=== PATIENT | female | born 1950 | race African-American/Black ===

== ENCOUNTER 2016-08-26 11:35 | Emergency (ER) | payer MEDICARE, BC ==
[~2016-08-26] VITALS: Ht 162.6 cm; Wt 85.5 kg
[~2016-08-26 11:35] MED LIST: AMBIEN CR 12.12.5 MG PO; AMITIZA 8MCG8 MCG PO; AMLOPIDINE; AMLOPIDINE PO; AMOXICILLIN; AMOXICILLIN 50500 MG; AMOXICILLIN 50500 MG PO; ANUSOL-HC SUPPO25 MG RC; ASPIRIN 81M81 MG/TA2 PO; ASPIRIN E.C. 8181 MG PO; ATARAX 25MG25 MG/TAB PO; ATARAX PO; ATENOLOL100 MG PO; ATENOLOL50 MG PO; ATIVAN2 MG PO; AZASAN100 MG PO; AZATHIOPRINE50 MG PO; B-12 500 MCG PO; B-121000 MCG PO; BACLOFEN; BACLOFEN PO; BENICAR; BENICAR PO; BIOTIN1000 MCG; BIOTIN1000 MCG PO; BUPIVACAINE; BUSPIRONE5 MG PO; CATAPRES; CELLCEPT 5500 MG/TAB PO; CLONAZEPAM PO; CLONAZEPAM1 MG PO; CLONIDINE; COLACE 100100 MG/CAP PO; CYCLOSPORINE; CYMBALTA; CYMBALTA 20MG20 MG PO; CYMBALTA 60MG60 MG PO; CYMBALTA60 MG PO; DIAZEPAM PO; DILAUDID 2MG TAB2 MG PO; DILAUDID 4MG TAB4 MG PO; DILAUDID-51 MG/M1; DILAUDID4 MG PO; EFFEXOR 75M75 MG/TAB PO; FLEXERIL10 MG PO; FOLIC ACID 11 MG/TA1 PO; FUROSEMIDE; FUROSEMIDE PO; HYDROMORPHONE; HYDROMORPHONE4 MG; HYDROMORPHONE4 MG PO; IMURAN 50MG TAB50 MG PO; K-DUR 10 MEQ T10 MEQ PO; KRISTALOSE20 GM/PACK PO; LASIX 20MG TABL20 MG PO; LASIX 40MG TABL40 MG PO; LEVSIN0.125 M1 PO; LINZESS290CAP; LINZESS290CAP PO; LIORESAL 1010 MG/TAB PO; LIORESAL20 MG PO; LIPITOR20 MG PO; LISINOPRIL10 MG PO; LYRICA 75MG CAP75 MG PO; LYRICA100 MG PO; MIRALAX PA17 GM/Dose PO; MOVANTIK25 MG PO; NATURE'S BLE1000 MCG PO; NORCO 325 MG-51 TAB PO; NORVASC 5MG5 MG/TAB PO; NYSTATIN CREAM15 GM TP; OTREXUP25 MG/0.4 SQ; PERCOCET 325 MG1 TA2 PO; PHENERGAN 25 TA25 MG; PHENERGAN 25 TA25 MG PO; PLAVIX 75MG TAB75 MG PO; PRILOSEC 20MG20 MG PO; PRINIVIL10 MG PO; PRINIVIL2.5 MG PO; PROTONIX 40MG T40 MG PO; RESTORIL30 MG PO; ROPIVACAINE; SEE INSTRUCTIONS IT; SEE LIST; SINGULAIR 110 MG/TAB PO; SOMA; SOMA 350MG350 MG/TAB PO; STOOL SOFTENER100 M1 PO; STOOL SOFTENER100 M2 PO; SYNTHROID 0.0.025 MG PO; SYNTHROID0.05 MG PO; SYNTHROID0.05 MG/TA PO; See instructions IT; TENORMIN100 MG PO; TIROSINT50 MCG PO; TRAZODONE HYDRO50 MG PO; TRIAMCINOLONE AC0.13 TP; TRIAMCINOLONE0.1% TP; TRIAMTERENE AND1 TA1 PO; ULTRAM 50MG TAB50 MG PO; VALIUM 10MG10 MG/TAB PO; VITAMIN B-1000 MCG/T PO; VITAMIN D2000 I1 PO; VITAMIN D32000 I1 PO; ZANAFLEX 4MG TAB4 MG PO; [UNRECOGNIZED DRUG - OTHER]; [UNRECOGNIZED DRUG - OTHER]; [UNRECOGNIZED DRUG - SUPPLY]
[2016-08-26 11:45] VITALS: TEMP 98
[2016-08-26 12:32] LABS: BASO % 0.5 % (0.0-2.0); EOS # 0.1 (0.0-0.7); EOS % 1.1 % (0-4.0); GRAN # 2.1 (1.4-6.5); GRAN % 46.4 % (42.2-75.2); HEMATOCRIT 38.9 % (37.0-47.0); HEMOGLOBIN 12.2 g/dl (12.5-16.0); LYMPH # 1.7 (1.2-3.4); LYMPH % 38.1 % (20.0-51.0); MEAN CELL VOLUME 94 fl (80.0-100.0); MEAN CORPUSCULAR HEMOGLOBIN 29 pg (27.0-31.0); MEAN CORPUSCULAR HGB CONC 31 g/dl (33.0-37.0); MEAN PLATELET VOLUME 11.1 fl (7.4-10.4); MONO # 0.6 (0.1-0.6); MONO % 13.7 % (1.7-9.3); PLATELET COUNT 249 K/mm3 (130-400); RED BLOOD COUNT 4.15 M/mm3 (4.10-5.30); REDCELL DISTRIBUTION WIDTH-CV 14.7 % (11.5-14.5); WHITE BLOOD COUNT 4.4 K/mm3 (4.8-10.8)
[2016-08-26 12:38] LABS: PROTHROMBIN TIME 11.2 SECONDS (9.7-12.8)
[2016-08-26 12:46] LABS: ALANINE AMINOTRANSFERASE 40 U/L (9-52); ALBUMIN 4.3 gm/dL (3.5-5.0); ALKALINE PHOSPHATASE 85 U/L (50-136); ANION GAP 10 mmol/L (7-16); BILIRUBIN,TOTAL 1.2 mg/dL (0.0-1.0); BLOOD UREA NITROGEN 16 mg/dL (7-17); CALCIUM 10.2 mg/dL (8.4-10.2); CARBON DIOXIDE 32 mmol/L (22-30); CHLORIDE 99 mmol/L (98-107); CREATININE, serum 0.94 mg/dL (0.52-1.25); GLUCOSE 84 mg/dL (74-106); POTASSIUM 3.9 mmol/L (3.4-5.0); SODIUM 141 mmol/L (137-145); TOTAL PROTEIN 7.8 gm/dL (6.4-8.2)
[2016-08-26 12:48] LABS: C-REACTIVE PROTEIN < 0.5 mg/dL (0.0-0.9)
[2016-08-26 12:52] LABS: B-TYPE NATRIURETIC PEPTIDE 176 pg/mL (0-125)
[2016-08-26 13:07] LABS: ERYTHROCYTE SEDIMENTATION RATE 8 mm/hr (0-30)
[2016-08-26 13:14] LABS: TROPONIN-I < 0.012 ng/mL (0.000-0.034)
[2016-08-26 15:15] VITALS: BP 131/76; PULSE 70
== END 2016-08-26 15:15 | disposition home or self-care (01) ==
LOC: COL.ER 11:35
PROVIDERS: Emergency Medicine
DX: R51 Headache (principal); R60.0 Localized edema; R25.2 Cramp and spasm; F17.210 Nicotine dependence, cigarettes, uncomplicated; M32.9 Systemic lupus erythematosus, unspecified; Z86.718 Personal history of other venous thrombosis and embolism

== ENCOUNTER 2016-09-16 19:55 | Emergency (ER) | payer MEDICARE, BC ==
[~2016-09-16] VITALS: Ht 162.6 cm; Wt 81.8 kg
[2016-09-16 19:56] VITALS: TEMP 98.3
[2016-09-16 21:28] LABS: BASO % 0.5 % (0.0-2.0); EOS # 0.1 (0.0-0.7); EOS % 1.6 % (0-4.0); GRAN # 3.4 (1.4-6.5); LYMPH # 1.6 (1.2-3.4); LYMPH % 27.3 % (20.0-51.0); MEAN CELL VOLUME 93 fl (80.0-100.0); MEAN CORPUSCULAR HEMOGLOBIN 29 pg (27.0-31.0); MEAN CORPUSCULAR HGB CONC 32 g/dl (33.0-37.0); MEAN PLATELET VOLUME 10.6 fl (7.4-10.4); MONO # 0.7 (0.1-0.6); MONO % 11.4 % (1.7-9.3); PLATELET COUNT 255 K/mm3 (130-400); RED BLOOD COUNT 4.09 M/mm3 (4.10-5.30); REDCELL DISTRIBUTION WIDTH-CV 14.1 % (11.5-14.5); WHITE BLOOD COUNT 5.7 K/mm3 (4.8-10.8)
[2016-09-16 21:46] LABS: ALANINE AMINOTRANSFERASE 32 U/L (9-52); ALKALINE PHOSPHATASE 80 U/L (50-136); ANION GAP 7 mmol/L (7-16); BILIRUBIN,TOTAL 0.9 mg/dL (0.0-1.0); BLOOD UREA NITROGEN 14 mg/dL (7-17); C-REACTIVE PROTEIN < 0.5 mg/dL (0.0-0.9); CARBON DIOXIDE 36 mmol/L (22-30); CHLORIDE 99 mmol/L (98-107); CREATININE, serum 0.83 mg/dL (0.52-1.25); GLUCOSE 104 mg/dL (74-106); LIPASE 28 U/L (23-300); POTASSIUM 4.4 mmol/L (3.4-5.0); SODIUM 142 mmol/L (137-145); TOTAL PROTEIN 7.4 gm/dL (6.4-8.2)
[2016-09-16 22:05] LABS: ERYTHROCYTE SEDIMENTATION RATE 4 mm/hr (0-30)
[2016-09-16 22:38] VITALS: BP 152/80
[2016-09-16] MEDS ORDERED: ULTRAM 50MG TAB50 MG PO (22:39)
[2016-09-16] MEDS ORDERED: ZOFRAN8 MG PO (22:39)
[2016-09-16 22:45] LABS: PH 7 (5-8); SQUAMOUS EPITHELIAL 0-2 /hpf; URINE APPEARANCE Clear; URINE BACTERIA None Seen /hpf; URINE BILIRUBIN Negative (NEGATIVE); URINE BLOOD Negative (NEGATIVE); URINE COLOR Straw; URINE GLUCOSE Negative (NEGATIVE); URINE KETONE Negative (NEGATIVE); URINE RBC 0-2 /hpf; URINE UROBILINOGEN Negative (NEGATIVE); URINE WBC 0-2 /hpf
[2016-09-17 00:03] VITALS: PULSE 64
== END 2016-09-17 00:10 | disposition home or self-care (01) ==
LOC: COL.ER 19:55
PROVIDERS: Emergency Medicine
DX: R10.84 Generalized abdominal pain (principal); I10 Essential (primary) hypertension; F17.210 Nicotine dependence, cigarettes, uncomplicated
CPT/HCPCS: J1170; J2550; J7030; Q9967

== ENCOUNTER → 2016-10-02 | Outpatient (CLI) | payer MEDICARE, BC ==
[~2016-10-02] MED LIST changes: +CYMBALTA 30MG30 MG PO; +HAIRSKINNAILS PO; +MASON NATURAL2000 IU; +PERCOCET 325 MG1 TAB PO; +PROBIOTIC-MAJOR PO; +ZOFRAN8 MG PO
== END ==
LOC: MC.RAD 11:14
DX: Z12.31 Encounter for screening mammogram for malignant neoplasm of breast (principal); Z85.3 Personal history of malignant neoplasm of breast; Z90.12 Acquired absence of left breast and nipple
CPT/HCPCS: G0202

== ENCOUNTER → 2016-10-23 | Outpatient (CLI) | payer MEDICARE, BC | LOC: COL.RAD 10-21 11:30 | DX: M54.5 Low back pain (principal); M51.26 Other intervertebral disc displacement, lumbar region; M48.06 Spinal stenosis, lumbar region; M41.86 Other forms of scoliosis, lumbar region; Z97.8 Presence of other specified devices | CPT/HCPCS: Q9967 ==

== ENCOUNTER 2017-01-11 00:51 | Emergency (ER) | payer MEDICARE, BC ==
[~2017-01-11] VITALS: Ht 162.6 cm; Wt 84.1 kg
[~2017-01-11 00:51] MED LIST changes: -CYMBALTA 30MG30 MG PO; -HAIRSKINNAILS PO; -MASON NATURAL2000 IU; -PERCOCET 325 MG1 TAB PO; -PROBIOTIC-MAJOR PO
[2017-01-11 00:57] VITALS: TEMP 98.2
[2017-01-11] MEDS ORDERED: IMURAN 50MG TAB50 MG PO (01:05)
[2017-01-11] MEDS ORDERED: PERCOCET 325 MG1 TAB PO (01:10)
[2017-01-11] MEDS ORDERED: CYMBALTA 30MG30 MG PO (01:13)
[2017-01-11 01:37] LABS: BASO % 0.6 % (0.0-2.0); EOS # 0.1 (0.0-0.7); EOS % 2.5 % (0-4.0); GRAN # 2.9 (1.4-6.5); GRAN % 57.3 % (42.2-75.2); LYMPH # 1.5 (1.2-3.4); LYMPH % 30.2 % (20.0-51.0); MEAN CELL VOLUME 94 fl (80.0-100.0); MEAN CORPUSCULAR HGB CONC 32 g/dl (33.0-37.0); MEAN PLATELET VOLUME 10.9 fl (7.4-10.4); MONO # 0.5 (0.1-0.6); MONO % 9.2 % (1.7-9.3); PLATELET COUNT 253 K/mm3 (130-400); RED BLOOD COUNT 3.93 M/mm3 (4.10-5.30); REDCELL DISTRIBUTION WIDTH-CV 15.7 % (11.5-14.5); WHITE BLOOD COUNT 5.1 K/mm3 (4.8-10.8)
[2017-01-11 01:43] LABS: HEMATOCRIT 36.8 % (37.0-47.0); HEMOGLOBIN 11.8 g/dl (12.5-16.0); MEAN CORPUSCULAR HEMOGLOBIN 30 pg (27.0-31.0)
[2017-01-11 01:49] LABS: ADJUSTED CALCIUM 9.5 mg/dL (8.4-10.2); ALANINE AMINOTRANSFERASE 22 U/L (9-52); ALKALINE PHOSPHATASE 70 U/L (50-136); ANION GAP 8 mmol/L (7-16); BILIRUBIN,TOTAL 0.8 mg/dL (0.0-1.0); BLOOD UREA NITROGEN 14 mg/dL (7-17); CALCIUM 9.5 mg/dL (8.4-10.2); CARBON DIOXIDE 30 mmol/L (22-30); CHLORIDE 100 mmol/L (98-107); CREATININE, serum 0.87 mg/dL (0.52-1.25); GLUCOSE 102 mg/dL (74-106); LIPASE 41 U/L (23-300); POTASSIUM 3.9 mmol/L (3.4-5.0); SODIUM 138 mmol/L (137-145)
[2017-01-11 01:50] LABS: C-REACTIVE PROTEIN < 0.5 mg/dL (0.0-0.9)
[2017-01-11 01:58] LABS: B-TYPE NATRIURETIC PEPTIDE 90 pg/mL (0-125)
[2017-01-11 01:59] LABS: TROPONIN-I < 0.012 ng/mL (0.000-0.034)
[2017-01-11 02:00] LABS: ERYTHROCYTE SEDIMENTATION RATE 10 mm/hr (0-30)
[2017-01-11 03:18] LABS: PH 7 (5-8); SQUAMOUS EPITHELIAL 0-2 /hpf; URINE APPEARANCE Clear; URINE BACTERIA None Seen /hpf; URINE BILIRUBIN Negative (NEGATIVE); URINE BLOOD Negative (NEGATIVE); URINE COLOR Yellow; URINE GLUCOSE Negative (NEGATIVE); URINE KETONE Negative (NEGATIVE); URINE RBC 0-2 /hpf; URINE UROBILINOGEN Negative (NEGATIVE); URINE WBC 0-2 /hpf
[2017-01-11 04:04] VITALS: BP 128/84; PULSE 80
== END 2017-01-11 04:05 | disposition home or self-care (01) ==
LOC: COL.ER 00:51
PROVIDERS: Emergency Medicine
DX: R60.0 Localized edema (principal); G89.29 Other chronic pain; R51 Headache; R10.817 Generalized abdominal tenderness; M06.9 Rheumatoid arthritis, unspecified; M32.9 Systemic lupus erythematosus, unspecified; Z86.73 Personal history of transient ischemic attack (TIA), and cerebral infarction without residual deficits; K58.9 Irritable bowel syndrome, unspecified; R25.2 Cramp and spasm; M79.605 Pain in left leg; M79.604 Pain in right leg; Z79.891 Long term (current) use of opiate analgesic; Z79.82 Long term (current) use of aspirin
CPT/HCPCS: J1170

== ENCOUNTER → 2017-01-14 | Outpatient (CLI) | payer MEDICARE, BC ==
[~2017-01-14] MED LIST changes: +CYMBALTA 30MG30 MG PO; +HAIRSKINNAILS PO; +MASON NATURAL2000 IU; +PERCOCET 325 MG1 TAB PO; +PROBIOTIC-MAJOR PO
== END ==
LOC: COL.VAS 08:59
DX: M79.89 Other specified soft tissue disorders (principal)

== ENCOUNTER 2017-02-05 15:18 | Emergency (ER) | payer MEDICARE, BC ==
[~2017-02-05] VITALS: Ht 162.6 cm; Wt 80.0 kg
[~2017-02-05 15:18] MED LIST changes: -HAIRSKINNAILS PO; -MASON NATURAL2000 IU; -PROBIOTIC-MAJOR PO
[2017-02-05 15:22] VITALS: TEMP 98.1
[2017-02-05] MEDS ORDERED: NORCO 325 MG-51 TAB PO (16:46)
[2017-02-05] MEDS ORDERED: ULTRAM 50MG TAB50 MG PO (16:47)
[2017-02-05] MEDS ORDERED: LASIX 20MG TABL20 MG PO (17:10)
[2017-02-05 17:13] LABS: PH 6 (5-8); SQUAMOUS EPITHELIAL 0-2 /hpf; URINE APPEARANCE Hazy; URINE BACTERIA None Seen /hpf; URINE BILIRUBIN Negative (NEGATIVE); URINE BLOOD 3+ (NEGATIVE); URINE COLOR Amber; URINE GLUCOSE Negative (NEGATIVE); URINE KETONE Negative (NEGATIVE); URINE RBC >50 /hpf; URINE UROBILINOGEN Negative (NEGATIVE); URINE WBC None Seen /hpf
[2017-02-05] MEDS ORDERED: IMURAN 50MG TAB50 MG PO (17:14)
[2017-02-05 19:30] VITALS: BP 140/69; PULSE 60
== END 2017-02-05 19:56 | disposition home or self-care (01) ==
LOC: COL.ER 15:18 → MEDICAL 19:21 → COL.ER 19:21
PROVIDERS: Emergency Medicine
DX: M54.5 Low back pain (principal); M25.551 Pain in right hip; G89.29 Other chronic pain; Z86.73 Personal history of transient ischemic attack (TIA), and cerebral infarction without residual deficits; I10 Essential (primary) hypertension; M06.9 Rheumatoid arthritis, unspecified; M32.9 Systemic lupus erythematosus, unspecified; Z86.718 Personal history of other venous thrombosis and embolism; Z96.641 Presence of right artificial hip joint; W07.XXXA Fall from chair, initial encounter; Z79.02 Long term (current) use of antithrombotics/antiplatelets
CPT/HCPCS: J1170; J1885

== ENCOUNTER 2017-02-11 15:58 | Day surgery (SDC) | payer MEDICARE, BC ==
[~2017-02-11] VITALS: Ht 162.6 cm; Wt 79.9 kg
[2017-02-11 16:42] VITALS: BP 140/65; PULSE 70; TEMP 97.6
[2017-02-11] MEDS ORDERED: MASON NATURAL2000 IU (17:17)
[2017-02-11] MEDS ORDERED: CYMBALTA 20MG20 MG PO (17:18)
[2017-02-11] MEDS ORDERED: CYMBALTA 60MG60 MG PO (17:20)
[2017-02-11] MEDS ORDERED: MIRALAX PA17 GM/Dose PO (17:28)
[2017-02-11] MEDS ORDERED: PROBIOTIC-MAJOR PO (17:30)
[2017-02-11] MEDS ORDERED: DILAUDID 4MG TAB4 MG PO (17:31)
[2017-02-11 18:45] VITALS: BP 115/73; PULSE 73; TEMP 97.1
[2017-02-11 20:00] VITALS: BP 115/73; PULSE 72
[2017-02-11 20:30] VITALS: BP 139/68; PULSE 69
[2017-02-11 21:30] VITALS: BP 130/95; PULSE 72
[2017-02-11 22:30] VITALS: BP 12/73; PULSE 84
== END 2017-02-11 20:21 | disposition home or self-care (01) ==
LOC: SDCO 15:58 → JCC 16:00 → SDCO 17:30
DX: N20.0 Calculus of kidney (principal); I10 Essential (primary) hypertension; K58.9 Irritable bowel syndrome, unspecified; D68.62 Lupus anticoagulant syndrome; F17.210 Nicotine dependence, cigarettes, uncomplicated; I25.10 Atherosclerotic heart disease of native coronary artery without angina pectoris; I25.2 Old myocardial infarction; G47.33 Obstructive sleep apnea (adult) (pediatric); K21.9 Gastro-esophageal reflux disease without esophagitis; M19.90 Unspecified osteoarthritis, unspecified site; D64.9 Anemia, unspecified; E03.9 Hypothyroidism, unspecified; M06.9 Rheumatoid arthritis, unspecified; F41.9 Anxiety disorder, unspecified; Z79.01 Long term (current) use of anticoagulants; Z80.9 Family history of malignant neoplasm, unspecified; Z90.710 Acquired absence of both cervix and uterus; Z90.12 Acquired absence of left breast and nipple; Z86.73 Personal history of transient ischemic attack (TIA), and cerebral infarction without residual deficits; Z85.3 Personal history of malignant neoplasm of breast; Z96.652 Presence of left artificial knee joint; Z87.442 Personal history of urinary calculi; Z96.649 Presence of unspecified artificial hip joint
CPT/HCPCS: OP; C1769; J0360; J0690; J1100; J1885; J2405; J2704; J2765; J3010; J7120; Q9967

== ENCOUNTER 2017-02-13 11:24 | Observation (INO) | payer MEDICARE, BC ==
[2017-02-13] VITALS (10 sets, daily range): BP systolic 118–163; BP diastolic 61–99; PULSE 72–86; TEMP 97.8–98
[~2017-02-13] VITALS: Ht 162.6 cm; Wt 76.9 kg
[~2017-02-13 11:24] MED LIST changes: +MASON NATURAL2000 IU; +PROBIOTIC-MAJOR PO
[2017-02-13 12:22] LABS: PH 7 (5-8); SQUAMOUS EPITHELIAL 0-2 /hpf; URINE APPEARANCE Clear; URINE BACTERIA None Seen /hpf; URINE BILIRUBIN Negative (NEGATIVE); URINE BLOOD 2+ (NEGATIVE); URINE COLOR Straw; URINE GLUCOSE Negative (NEGATIVE); URINE KETONE Negative (NEGATIVE); URINE RBC 20-50 /hpf; URINE UROBILINOGEN Negative (NEGATIVE); URINE WBC 0-2 /hpf
[2017-02-13 12:49] LABS: ADJUSTED CALCIUM 9.7 mg/dL (8.4-10.2); ALANINE AMINOTRANSFERASE 24 U/L (9-52); ALBUMIN 4.3 gm/dL (3.5-5.0); ALKALINE PHOSPHATASE 81 U/L (50-136); ANION GAP 11 mmol/L (7-16); BILIRUBIN,TOTAL 0.8 mg/dL (0.0-1.0); BLOOD UREA NITROGEN 17 mg/dL (7-17); CALCIUM 9.9 mg/dL (8.4-10.2); CARBON DIOXIDE 28 mmol/L (22-30); CHLORIDE 103 mmol/L (98-107); CREATININE, serum 0.96 mg/dL (0.52-1.25); GLUCOSE 99 mg/dL (74-106); POTASSIUM 3.3 mmol/L (3.4-5.0); SODIUM 141 mmol/L (137-145); TOTAL PROTEIN 7.8 gm/dL (6.4-8.2)
[2017-02-13 13:16] LABS: BASO % 0.2 % (0.0-2.0); EOS # 0.1 (0.0-0.7); EOS % 0.7 % (0-4.0); GRAN # 7.5 (1.4-6.5); GRAN % 72.7 % (42.2-75.2); HEMOGLOBIN 12.4 g/dl (12.5-16.0); LYMPH # 1.3 (1.2-3.4); LYMPH % 12.5 % (20.0-51.0); MEAN CELL VOLUME 94 fl (80.0-100.0); MEAN CORPUSCULAR HEMOGLOBIN 31 pg (27.0-31.0); MEAN CORPUSCULAR HGB CONC 33 g/dl (33.0-37.0); MEAN PLATELET VOLUME 11.1 fl (7.4-10.4); MONO # 1.3 (0.1-0.6); PLATELET COUNT 295 K/mm3 (130-400); RED BLOOD COUNT 4.06 M/mm3 (4.10-5.30); REDCELL DISTRIBUTION WIDTH-CV 15.9 % (11.5-14.5); WHITE BLOOD COUNT 10.3 K/mm3 (4.8-10.8)
[2017-02-13 13:27] LABS: C-REACTIVE PROTEIN < 0.5 mg/dL (0.0-0.9)
[2017-02-14] VITALS: BP 132/58; PULSE 75
[2017-02-14 04:56] VITALS: BP 133/62; PULSE 79; TEMP 98.1
[2017-02-14 09:20] VITALS: BP 127/56; PULSE 66; TEMP 98.4
[2017-02-14 13:30] VITALS: BP 116/45; PULSE 67; TEMP 98.6
[2017-02-14 18:25] VITALS: BP 130/56; PULSE 65; TEMP 98.6
[2017-02-14 20:00] VITALS: BP 143/72; PULSE 74; TEMP 98
== END 2017-02-14 20:55 | disposition home or self-care (01) ==
LOC: COL.ER 11:24 → SURG 14:56
PROVIDERS: Family Medicine
DX: N13.6 Pyonephrosis (principal); Z87.442 Personal history of urinary calculi; I25.10 Atherosclerotic heart disease of native coronary artery without angina pectoris; I25.2 Old myocardial infarction; F17.210 Nicotine dependence, cigarettes, uncomplicated; K21.9 Gastro-esophageal reflux disease without esophagitis; G89.29 Other chronic pain; M54.9 Dorsalgia, unspecified; F41.8 Other specified anxiety disorders; Z86.718 Personal history of other venous thrombosis and embolism; E03.9 Hypothyroidism, unspecified; D64.9 Anemia, unspecified; Z85.3 Personal history of malignant neoplasm of breast; I69.351 Hemiplegia and hemiparesis following cerebral infarction affecting right dominant side; I10 Essential (primary) hypertension; Z97.8 Presence of other specified devices; Z79.02 Long term (current) use of antithrombotics/antiplatelets; M19.90 Unspecified osteoarthritis, unspecified site
CPT/HCPCS: A4315; A9284; C1769; C2617; G0378; J0330; J0690; J0696; J1170; J1200; J2405; J2550; J2704; J3010; J7030; J7120; Q9967

== ENCOUNTER 2017-02-22 09:49 | Day surgery (SDC) | payer MEDICARE, BC ==
[2017-02-22] VITALS (11 sets, daily range): BP systolic 107–138; BP diastolic 47–77; PULSE 69–85; TEMP 97.5–98.5
[~2017-02-22] VITALS: Ht 162.6 cm; Wt 78.4 kg
[2017-02-22] MEDS ORDERED: HAIRSKINNAILS PO (11:03)
[2017-02-22] MEDS ORDERED: PERCOCET 325 MG1 TAB PO (11:06)
[2017-02-23 02:09] VITALS: BP 118/52; PULSE 74; TEMP 98.5
[2017-02-23 05:43] VITALS: BP 130/56; PULSE 64; TEMP 98.5
[2017-02-23 09:24] VITALS: BP 112/49; PULSE 69; TEMP 98.1
== END 2017-02-23 13:20 | disposition home or self-care (01) ==
LOC: SDCO 09:49 → SURG 13:20 → SDCO 02-23 13:20
DX: N20.1 Calculus of ureter (principal); K58.9 Irritable bowel syndrome, unspecified; G62.9 Polyneuropathy, unspecified; I10 Essential (primary) hypertension; M06.9 Rheumatoid arthritis, unspecified; G47.30 Sleep apnea, unspecified; Z97.8 Presence of other specified devices; Z86.73 Personal history of transient ischemic attack (TIA), and cerebral infarction without residual deficits; Z96.653 Presence of artificial knee joint, bilateral; Z96.649 Presence of unspecified artificial hip joint
CPT/HCPCS: OP; A9284; C1769; J0690; J1100; J1885; J2405; J2704; J2765; J3010; J7030; J7500; Q9967

== ENCOUNTER 2017-03-24 15:59 | Emergency (ER) | payer MEDICARE, BC ==
[~2017-03-24] VITALS: Ht 162.6 cm; Wt 68.6 kg
[~2017-03-24 15:59] MED LIST changes: +HAIRSKINNAILS PO
[2017-03-24 16:04] VITALS: TEMP 97.9
[2017-03-24 17:03] LABS: BASO % 0.3 % (0.0-2.0); EOS # 0.3 (0.0-0.7); EOS % 5.1 % (0-4.0); GRAN # 3.5 (1.4-6.5); GRAN % 60.1 % (42.2-75.2); LYMPH # 1.4 (1.2-3.4); LYMPH % 23.9 % (20.0-51.0); MEAN CELL VOLUME 94 fl (80.0-100.0); MEAN CORPUSCULAR HGB CONC 33 g/dl (33.0-37.0); MEAN PLATELET VOLUME 10.8 fl (7.4-10.4); MONO # 0.6 (0.1-0.6); MONO % 10.3 % (1.7-9.3); PLATELET COUNT 310 K/mm3 (130-400); RED BLOOD COUNT 3.32 M/mm3 (4.10-5.30); WHITE BLOOD COUNT 5.9 K/mm3 (4.8-10.8)
[2017-03-24 17:04] LABS: HEMATOCRIT 31.2 % (37.0-47.0); HEMOGLOBIN 10.2 g/dl (12.5-16.0); MEAN CORPUSCULAR HEMOGLOBIN 31 pg (27.0-31.0)
[2017-03-24 17:08] LABS: PROTHROMBIN TIME 11.5 SECONDS (9.7-12.8)
[2017-03-24 17:10] LABS: PARTIAL THROMBOPLASTIN TIME 32.1 SECONDS (26.0-37.0)
[2017-03-24 17:23] LABS: ADJUSTED CALCIUM 10.1 mg/dL (8.4-10.2); ALBUMIN 3.5 gm/dL (3.5-5.0); BILIRUBIN,TOTAL 0.5 mg/dL (0.0-1.0); CALCIUM 9.7 mg/dL (8.4-10.2); CREATININE, serum 0.86 mg/dL (0.52-1.25); POTASSIUM 3.4 mmol/L (3.4-5.0); TOTAL PROTEIN 6.9 gm/dL (6.4-8.2)
[2017-03-24 19:40] VITALS: BP 100/66; PULSE 79
== END 2017-03-24 19:40 | disposition home or self-care (01) ==
LOC: COL.ER 15:59
PROVIDERS: Emergency Medicine
DX: M25.512 Pain in left shoulder (principal); M54.9 Dorsalgia, unspecified; G89.29 Other chronic pain; R20.0 Anesthesia of skin; F17.210 Nicotine dependence, cigarettes, uncomplicated; Z79.82 Long term (current) use of aspirin; W18.30XA Fall on same level, unspecified, initial encounter; Y92.002 Bathroom of unspecified non-institutional (private) residence as the place of occurrence of the external cause

== ENCOUNTER 2017-06-03 15:46 | Emergency (ER) | payer MEDICARE, BC ==
[~2017-06-03] VITALS: Ht 162.6 cm; Wt 77.3 kg
[2017-06-03 15:52] VITALS: BP 118/59; TEMP 98
[2017-06-03 19:50] VITALS: PULSE 76
== END 2017-06-03 19:51 | disposition home or self-care (01) ==
LOC: COL.ER 15:46
DX: S70.01XA Contusion of right hip, initial encounter (principal); R60.0 Localized edema; F17.210 Nicotine dependence, cigarettes, uncomplicated; M79.1 Myalgia; Z79.82 Long term (current) use of aspirin; Z91.81 History of falling; W18.30XA Fall on same level, unspecified, initial encounter; Y92.009 Unspecified place in unspecified non-institutional (private) residence as the place of occurrence of the external cause
CPT/HCPCS: J1885

== ENCOUNTER → 2017-10-20 | Outpatient (CLI) | payer MEDICARE, BC | LOC: MC.RAD 10:08 | DX: Z12.31 Encounter for screening mammogram for malignant neoplasm of breast (principal) ==

== ENCOUNTER 2017-11-12 15:00 | Outpatient (RCR) | payer MEDICARE, BC ==
[~2017-11-12] VITALS: Ht 162.6 cm; Wt 77.2 kg
[2017-11-12 15:32] VITALS: BP 107/47; PULSE 87; TEMP 98.6
== END 2017-11-12 16:29 | disposition home or self-care (01) ==
LOC: EUO 15:00
DX: M81.0 Age-related osteoporosis without current pathological fracture (principal); Z88.5 Allergy status to narcotic agent; Z88.2 Allergy status to sulfonamides; Z88.8 Allergy status to other drugs, medicaments and biological substances
CPT/HCPCS: J3489

== ENCOUNTER 2017-12-22 10:26 | Emergency (ER) | payer MEDICARE, BC ==
[~2017-12-22] VITALS: Ht 162.6 cm; Wt 74.1 kg
[2017-12-22 10:28] VITALS: TEMP 98
[2017-12-22 11:18] LABS: EOS # 0.2 (0.0-0.7); EOS % 4.4 % (0-4.0); GRAN # 2.1 (1.4-6.5); GRAN % 52.6 % (42.2-75.2); HEMATOCRIT 32.7 % (37.0-47.0); HEMOGLOBIN 10.3 g/dl (12.5-16.0); LYMPH # 1.1 (1.2-3.4); LYMPH % 28.8 % (20.0-51.0); MEAN CELL VOLUME 95 fl (80.0-100.0); MEAN CORPUSCULAR HEMOGLOBIN 30 pg (27.0-31.0); MEAN CORPUSCULAR HGB CONC 32 g/dl (33.0-37.0); MEAN PLATELET VOLUME 10.5 fl (7.4-10.4); MONO # 0.5 (0.1-0.6); MONO % 12.9 % (1.7-9.3); PLATELET COUNT 335 K/mm3 (130-400); RED BLOOD COUNT 3.44 M/mm3 (4.10-5.30); REDCELL DISTRIBUTION WIDTH-CV 16.5 % (11.5-14.5)
[2017-12-22 11:26] LABS: ALBUMIN 3.6 gm/dL (3.5-5.0); BILIRUBIN,TOTAL 0.8 mg/dL (0.0-1.0); CALCIUM 9.2 mg/dL (8.4-10.2); CREATININE, serum 0.74 mg/dL (0.52-1.25); PHOSPHOROUS 3.8 mg/dL (2.5-4.5); POTASSIUM 3.8 mmol/L (3.4-5.0)
[2017-12-22 13:10] LABS: COLLECTION METHOD CLEAN CATCH
[2017-12-22 13:16] LABS: MUCOUS Present /lpf; PH 7 (5-8); SQUAMOUS EPITHELIAL 0-2 /hpf; URINE APPEARANCE Clear; URINE BACTERIA None Seen /hpf; URINE BILIRUBIN Negative (NEGATIVE); URINE BLOOD Negative (NEGATIVE); URINE COLOR Yellow; URINE GLUCOSE Negative (NEGATIVE); URINE KETONE Negative (NEGATIVE); URINE LEUKOCYTE ESTERASE Negative (NEGATIVE); URINE NITRATE Negative (NEGATIVE); URINE PROTEIN(semi-quant) Negative (NEGATIVE); URINE RBC 0-2 /hpf; URINE UROBILINOGEN Negative (NEGATIVE)
[2017-12-22 14:25] VITALS: BP 152/73; PULSE 68
== END 2017-12-22 13:50 | disposition home or self-care (01) ==
LOC: COL.ER 10:26
PROVIDERS: Emergency Medicine
DX: S06.0X0A Concussion without loss of consciousness, initial encounter (principal); S00.83XA Contusion of other part of head, initial encounter; Z79.02 Long term (current) use of antithrombotics/antiplatelets; Z79.82 Long term (current) use of aspirin; W19.XXXA Unspecified fall, initial encounter; W22.8XXA Striking against or struck by other objects, initial encounter; Y92.009 Unspecified place in unspecified non-institutional (private) residence as the place of occurrence of the external cause
CPT/HCPCS: J1170

== ENCOUNTER → 2018-07-14 | Outpatient (CLI) | payer MEDICARE, BC | LOC: COL.RAD 14:00 | DX: M79.672 Pain in left foot (principal) | CPT/HCPCS: J3301; Q9967 ==

== ENCOUNTER 2018-08-03 10:44 | Emergency (ER) | payer MEDICARE, BC ==
[~2018-08-03] VITALS: Ht 162.6 cm; Wt 89.1 kg
[2018-08-03 10:49] VITALS: BP 117/59; TEMP 98.3
[2018-08-03 11:25] LABS: BASO % 0.2 % (0.0-2.0); EOS % 0.6 % (0-4.0); GRAN # 3.3 (1.4-6.5); GRAN % 68.4 % (42.2-75.2); HEMATOCRIT 41.6 % (37.0-47.0); HEMOGLOBIN 13.7 g/dl (12.5-16.0); LYMPH # 0.9 (1.2-3.4); LYMPH % 18.3 % (20.0-51.0); MEAN CELL VOLUME 92 fl (80.0-100.0); MEAN CORPUSCULAR HEMOGLOBIN 30 pg (27.0-31.0); MEAN CORPUSCULAR HGB CONC 33 g/dl (33.0-37.0); MEAN PLATELET VOLUME 11.2 fl (7.4-10.4); MONO # 0.6 (0.1-0.6); MONO % 12.1 % (1.7-9.3); PLATELET COUNT 258 K/mm3 (130-400); RED BLOOD COUNT 4.53 M/mm3 (4.10-5.30); REDCELL DISTRIBUTION WIDTH-CV 15.4 % (11.5-14.5)
[2018-08-03 11:37] LABS: ALBUMIN 4.4 gm/dL (3.5-5.0); BILIRUBIN,TOTAL 0.8 mg/dL (0.0-1.0); CALCIUM 10.2 mg/dL (8.4-10.2); CREATININE, serum 1.24 mg/dL (0.52-1.25); POTASSIUM 4.2 mmol/L (3.4-5.0); TOTAL PROTEIN 8.3 gm/dL (6.4-8.2)
[2018-08-03] MEDS ORDERED: PROAIR HFA0.09 MG/AC IH (11:55)
[2018-08-03] MEDS ORDERED: AMITIZA24 MCG PO (11:58)
[2018-08-03] MEDS ORDERED: PAMELOR 25MG25 MG PO (12:05)
[2018-08-03] MEDS ORDERED: ZANTAC 150MG T150 MG PO (12:06)
[2018-08-03] MEDS ORDERED: RECLAST5 MG/100 M IV (12:06)
[2018-08-03] MEDS ORDERED: XELJANZ XR11 MG PO (12:07)
[2018-08-03] MEDS ORDERED: XIIDRA1 EACH OP (12:07)
[2018-08-03] MEDS ORDERED: GINGER ROOT EX250 MG PO (12:09)
[2018-08-03] MEDS ORDERED: DILAUDID (12:12)
[2018-08-03] MEDS ORDERED: PROMETHAZINE12.5 M5 PO (13:06)
[2018-08-03 13:21] VITALS: PULSE 93
[2018-08-03] MEDS ORDERED: DOXYCYCLINE HY100 MG PO (13:26)
== END 2018-08-03 13:53 | disposition home or self-care (01) ==
LOC: COL.ER 10:44
PROVIDERS: Nurse Practitioner
DX: J20.9 Acute bronchitis, unspecified (principal); J45.909 Unspecified asthma, uncomplicated; K58.9 Irritable bowel syndrome, unspecified; F17.210 Nicotine dependence, cigarettes, uncomplicated; Z79.82 Long term (current) use of aspirin; Z79.02 Long term (current) use of antithrombotics/antiplatelets
CPT/HCPCS: J7030

== ENCOUNTER 2018-09-30 10:27 | Emergency (ER) | payer MEDICARE, BC ==
[~2018-09-30] VITALS: Ht 162.6 cm; Wt 93.2 kg
[~2018-09-30 10:27] MED LIST changes: +AMITIZA24 MCG PO; +DILAUDID; +DOXYCYCLINE HY100 MG PO; +GINGER ROOT EX250 MG PO; +PAMELOR 25MG25 MG PO; +PROAIR HFA0.09 MG/AC IH; +PROMETHAZINE12.5 M5 PO; +RECLAST5 MG/100 M IV; +UROCIT-K 5540 MG/TAB PO; +XELJANZ XR11 MG PO; +XIIDRA1 EACH OP; +ZANTAC 150MG T150 MG PO
[2018-09-30 14:11] VITALS: TEMP 98
[2018-09-30 14:13] LABS: ARTERIAL BLD GAS O2 SATURATION 94.2 % (92-100); ARTERIAL BLD GAS TCO2 CT 36.2; ARTERIAL BLOOD GAS BASE EXCESS 9.2 (-2-2); ARTERIAL BLOOD GAS HCO3 34.6 meq/L (22-26); ARTERIAL BLOOD GAS PCO2 51.8 mmHg (35-45); ARTERIAL BLOOD GAS PO2 75.9 mmHg (80-100); ARTERIAL BLOOD GAS pH 7.44 (7.35-7.45)
[2018-09-30 14:29] LABS: COLLECTION METHOD CLEAN CATCH; PH 6 (5-8); SQUAMOUS EPITHELIAL 0-2 /hpf; URINE APPEARANCE Clear; URINE BACTERIA Rare /hpf; URINE BILIRUBIN Negative (NEGATIVE); URINE BLOOD Negative (NEGATIVE); URINE COLOR Straw; URINE GLUCOSE Negative (NEGATIVE); URINE KETONE Negative (NEGATIVE); URINE LEUKOCYTE ESTERASE Negative (NEGATIVE); URINE NITRATE Negative (NEGATIVE); URINE PROTEIN(semi-quant) Negative (NEGATIVE); URINE RBC 0-2 /hpf; URINE UROBILINOGEN Negative (NEGATIVE); URINE WBC 0-2 /hpf
[2018-09-30 15:06] LABS: ALBUMIN 3.6 gm/dL (3.5-5.0); BILIRUBIN,TOTAL 0.2 mg/dL (0.0-1.0); C-REACTIVE PROTEIN 1.2 mg/dL (0.0-0.9); CALCIUM 9.8 mg/dL (8.4-10.2); CREATININE, serum 0.92 mg/dL (0.52-1.25); POTASSIUM 4.2 mmol/L (3.4-5.0)
[2018-09-30 15:45] VITALS: BP 108/58; PULSE 115
[2018-09-30 16:09] LABS: TRICYCLIC ANTIDEPRESS URINE POSITIVE
[2018-09-30 16:15] LABS: BASO % 0.4 % (0.0-2.0); EOS # 0.1 (0.0-0.7); EOS % 1.8 % (0-4.0); GRAN # 3.4 (1.4-6.5); GRAN % 60.2 % (42.2-75.2); HEMATOCRIT 28.6 % (37.0-47.0); HEMOGLOBIN 9.2 g/dl (12.5-16.0); LYMPH # 1.3 (1.2-3.4); LYMPH % 22.6 % (20.0-51.0); MEAN CELL VOLUME 97 fl (80.0-100.0); MEAN CORPUSCULAR HEMOGLOBIN 31 pg (27.0-31.0); MEAN CORPUSCULAR HGB CONC 32 g/dl (33.0-37.0); MEAN PLATELET VOLUME 10.2 fl (7.4-10.4); MONO # 0.8 (0.1-0.6); MONO % 14.5 % (1.7-9.3); PLATELET COUNT 352 K/mm3 (130-400); RED BLOOD COUNT 2.96 M/mm3 (4.10-5.30); REDCELL DISTRIBUTION WIDTH-CV 15.9 % (11.5-14.5)
--- NOTE | 2018-09-30 16:26 | NUR ---
COLLIN and COLLIN carlin responded to ED consult. The patient informed her nurse that she lived alone in [place] and that she had recently just had spinal surgery. The ED reported concerns with the patient over medicating herself. COLLIN and COLLIN carlin then met with the patient. The patient informed COLLIN that she recently had spinal surgery and that they had sent her to [facility] for rehab. The patient reports that she would like to return back there. COLLIN then contacted and confirmed placement by Lesli at [facility]. Lesli reports that they sent the patient to the ED, due to concerns with the patient being lethargic, weak, and the possibility of her self-medicating. COLLIN then informed the patient's nurse and the patient's nurse spoke to [facility] staff. [facility] reports they found pain meds in a locked suitcase in her room. Those pain meds have now been removed. The patient is to return back to [facility] to resume her skilled stay today, 09/30. No additional needs at this time.
== END 2018-09-30 15:54 | disposition home or self-care (01) ==
LOC: COL.ER 10:27
PROVIDERS: Family Medicine
DX: R53.83 Other fatigue (principal); T40.605A Adverse effect of unspecified narcotics, initial encounter; Z79.02 Long term (current) use of antithrombotics/antiplatelets; Z79.899 Other long term (current) drug therapy; Z98.890 Other specified postprocedural states
CPT/HCPCS: J7040

== ENCOUNTER → 2018-11-25 | Outpatient (CLI) | payer MEDICARE, BC | LOC: MC.RAD 09:45 | DX: Z12.31 Encounter for screening mammogram for malignant neoplasm of breast (principal); Z85.3 Personal history of malignant neoplasm of breast ==

== ENCOUNTER → 2019-02-20 | Outpatient (CLI) | payer MEDICARE, BC | LOC: COL.RAD 08:26 | DX: M47.816 Spondylosis without myelopathy or radiculopathy, lumbar region (principal); M41.85 Other forms of scoliosis, thoracolumbar region; Z96.641 Presence of right artificial hip joint; Z98.890 Other specified postprocedural states | CPT/HCPCS: Q9967 ==

== ENCOUNTER → 2019-04-12 | Outpatient (CLI) | payer MEDICARE, BC | LOC: COL.RAD 04-10 08:00 | DX: M25.572 Pain in left ankle and joints of left foot (principal) | CPT/HCPCS: J3301; Q9967 ==

== ENCOUNTER 2019-05-06 21:47 | Emergency (ER) | payer MEDICARE, BC ==
[~2019-05-06] VITALS: Ht 162.6 cm; Wt 95.5 kg
[2019-05-06 21:49] VITALS: BP 137/65; TEMP 98.7
[2019-05-06 23:24] LABS: BASO % 0.5 % (0.0-2.0); EOS # 0.1 (0.0-0.7); EOS % 1.4 % (0-4.0); GRAN # 3.7 (1.4-6.5); LYMPH # 1.7 (1.2-3.4); LYMPH % 26.6 % (20.0-51.0); MEAN CELL VOLUME 88 fl (80.0-100.0); MEAN CORPUSCULAR HGB CONC 31 g/dl (33.0-37.0); MEAN PLATELET VOLUME 10.2 fl (7.4-10.4); MONO # 0.8 (0.1-0.6); MONO % 12.3 % (1.7-9.3); PLATELET COUNT 294 K/mm3 (130-400); RED BLOOD COUNT 3.62 M/mm3 (4.10-5.30); REDCELL DISTRIBUTION WIDTH-CV 18.6 % (11.5-14.5)
[2019-05-06 23:26] LABS: HEMATOCRIT 31.7 % (37.0-47.0); HEMOGLOBIN 9.8 g/dl (12.5-16.0); MEAN CORPUSCULAR HEMOGLOBIN 27 pg (27.0-31.0)
[2019-05-06 23:34] LABS: ALANINE AMINOTRANSFERASE 16 U/L (9-52); ALBUMIN 3.8 gm/dL (3.5-5.0); ALKALINE PHOSPHATASE 79 U/L (50-136); ANION GAP 4 mmol/L (7-16); AST,SGOT 23 U/L (15-37); BILIRUBIN,TOTAL 0.4 mg/dL (0.0-1.0); BLOOD UREA NITROGEN 19 mg/dL (7-17); CALCIUM 9.4 mg/dL (8.4-10.2); CARBON DIOXIDE 29 mmol/L (22-30); CHLORIDE 104 mmol/L (98-107); CREATININE, serum 1.15 (0.52-1.25); GLUCOSE 96 mg/dL (74-106); POTASSIUM 3.9 mmol/L (3.4-5.0); SODIUM 138 mmol/L (137-145); TOTAL PROTEIN 6.8 gm/dL (6.4-8.2)
[2019-05-06 23:35] LABS: C-REACTIVE PROTEIN < 0.5 mg/dL (0.0-0.9)
[2019-05-07 00:57] LABS: COLLECTION METHOD CLEAN CATCH
[2019-05-07 01:04] LABS: MUCOUS Present /lpf; PH 6 (5-8); SQUAMOUS EPITHELIAL 0-2 /hpf; URINE APPEARANCE Clear; URINE BACTERIA Rare /hpf; URINE BILIRUBIN Negative (NEGATIVE); URINE BLOOD Negative (NEGATIVE); URINE COLOR Yellow; URINE GLUCOSE Negative (NEGATIVE); URINE KETONE Negative (NEGATIVE); URINE LEUKOCYTE ESTERASE Negative (NEGATIVE); URINE NITRATE Negative (NEGATIVE); URINE PROTEIN(semi-quant) Negative (NEGATIVE); URINE RBC 0-2 /hpf; URINE UROBILINOGEN Negative (NEGATIVE)
[2019-05-07 01:59] LABS: TRICYCLIC ANTIDEPRESS URINE POSITIVE
[2019-05-07 02:35] VITALS: PULSE 85
== END 2019-05-07 02:30 | disposition home or self-care (01) ==
LOC: COL.ER 21:47
PROVIDERS: Family Medicine
DX: S06.0X0A Concussion without loss of consciousness, initial encounter (principal); M25.551 Pain in right hip; R40.2412 Glasgow coma scale score 13-15, at arrival to emergency department; W19.XXXA Unspecified fall, initial encounter; W22.8XXA Striking against or struck by other objects, initial encounter; Z79.02 Long term (current) use of antithrombotics/antiplatelets; Z79.82 Long term (current) use of aspirin

== ENCOUNTER 2019-05-11 13:39 | Emergency (ER) | payer MEDICARE, BC ==
[~2019-05-11] VITALS: Ht 162.6 cm; Wt 97.3 kg
[2019-05-11 13:43] VITALS: BP 171/78; TEMP 97.6
[2019-05-11 16:34] VITALS: PULSE 95
--- NOTE | 2019-05-11 16:38 | NUR ---
BERHANE carlin responded to the ED for a social science instructor referral. The patient was brought to the ED from the [facility]. The patient needed a ride back to her vehicle. BERHANE carlin provided a taxi voucher. BERHANE carlin collaborated the above information with the patient's nurse.
== END 2019-05-11 16:34 | disposition home or self-care (01) ==
LOC: COL.ER 13:39
DX: F11.90 Opioid use, unspecified, uncomplicated (principal); K58.9 Irritable bowel syndrome, unspecified; Z90.710 Acquired absence of both cervix and uterus; Z90.89 Acquired absence of other organs; Z79.02 Long term (current) use of antithrombotics/antiplatelets

== ENCOUNTER 2019-07-27 15:12 | Inpatient (IN) | payer MEDICARE, BC ==
[2019-07-27] VITALS (133 sets, daily range): BP systolic 115–126; BP diastolic 79–88; PULSE 124; TEMP 98.4; O2SAT 45–100
[~2019-07-27] VITALS: Ht 162.6 cm; Wt 94.0 kg
[2019-07-27] MEDS ORDERED: LOPRESSOR 225 MG/TAB PO (15:59)
[2019-07-27 16:39] LABS: BASO % 0.4 % (0.0-2.0); EOS % 0.4 % (0-4.0); GRAN # 3.3 (1.4-6.5); GRAN % 66.1 % (42.2-75.2); HEMOGLOBIN 11.4 g/dl (12.5-16.0); LYMPH % 20.4 % (20.0-51.0); MEAN CELL VOLUME 93 fl (80.0-100.0); MEAN CORPUSCULAR HEMOGLOBIN 29 pg (27.0-31.0); MEAN CORPUSCULAR HGB CONC 31 g/dl (33.0-37.0); MEAN PLATELET VOLUME 10.5 fl (7.4-10.4); MONO # 0.6 (0.1-0.6); MONO % 12.3 % (1.7-9.3); PLATELET COUNT 336 K/mm3 (130-400); RED BLOOD COUNT 3.98 M/mm3 (4.10-5.30); REDCELL DISTRIBUTION WIDTH-CV 21.7 % (11.5-14.5)
[2019-07-27 16:42] LABS: PROTHROMBIN TIME 11.3 SECONDS (9.7-12.8)
[2019-07-27 16:44] LABS: PARTIAL THROMBOPLASTIN TIME 37.3 SECONDS (26.0-37.0)
[2019-07-27 16:48] LABS: ALANINE AMINOTRANSFERASE 30 U/L (9-52); ALBUMIN 4.2 gm/dL (3.5-5.0); ALKALINE PHOSPHATASE 86 U/L (50-136); ANION GAP 7 mmol/L (7-16); AST,SGOT 28 U/L (15-37); BLOOD UREA NITROGEN 16 mg/dL (7-17); CALCIUM 9.5 mg/dL (8.4-10.2); CARBON DIOXIDE 28 mmol/L (22-30); CHLORIDE 104 mmol/L (98-107); CREATININE, serum 0.99 (0.52-1.25); GLUCOSE 81 mg/dL (74-106); PHOSPHOROUS 3.3 mg/dL (2.5-4.5); SODIUM 139 mmol/L (137-145); TOTAL PROTEIN 7.3 gm/dL (6.4-8.2)
[2019-07-27 16:49] LABS: C-REACTIVE PROTEIN < 0.5 mg/dL (0.0-0.9)
[2019-07-27 16:55] LABS: HEMATOCRIT 36.9 % (37.0-47.0)
[2019-07-27 16:58] LABS: TROPONIN-I < 0.012 ng/mL (0.000-0.035)
[2019-07-27 17:04] LABS: COLLECTION METHOD CLEAN CATCH
[2019-07-27 17:16] LABS: PH 8 (5-8); SQUAMOUS EPITHELIAL 0-2 /hpf; URINE APPEARANCE Clear; URINE BACTERIA Rare /hpf; URINE BILIRUBIN Negative (NEGATIVE); URINE BLOOD Negative (NEGATIVE); URINE COLOR Straw; URINE GLUCOSE Negative (NEGATIVE); URINE KETONE Negative (NEGATIVE); URINE LEUKOCYTE ESTERASE Negative (NEGATIVE); URINE NITRATE Negative (NEGATIVE); URINE PROTEIN(semi-quant) Negative (NEGATIVE); URINE RBC 0-2 /hpf; URINE UROBILINOGEN Negative (NEGATIVE)
--- NOTE | 2019-07-27 20:45 | NUR ---
Patient arrived in unit via stretcher from ED with ED staff and friend at 2035. Report received from Willy at 194. IVs infusing well, see EMAR. Belonings placed in closet and wallet sent to safe. Patient tachycardic and complains of LLQ pain but pleasant and cooperative and oriented x4.
--- NOTE | 2019-07-27 23:16 | NUR ---
Patient resting in bed. Has to void frequently due to "water pill" administration in ED so purewick placed. Patient agreeable to placement, will continue to monitor, see output flowsheet-urine very dilute and clear. Patient states pain is still 7/10 but that she is usually in pain and a goal/manageable level is 5/10. Patient does have pain pump in place and has made no changes since arriving in ICU. Patient remains alert and oriented amd IVs are infusing well.
[2019-07-27] MEDS ORDERED: ASPIRIN 81M81 MG/TA2 PO (23:44)
[2019-07-27] MEDS ORDERED: PROAIR HFA0.09 MG/AC IH (23:45)
[2019-07-27] MEDS ORDERED: XIIDRA1 EACH OP (23:46)
[2019-07-27] MEDS ORDERED: MIRALAX PA17 GM/Dose PO (23:46)
[2019-07-27] MEDS ORDERED: PEPCID 20MG TAB20 MG PO (23:47)
[2019-07-27] MEDS ORDERED: RECLAST5 MG/100 M IV (23:48)
[2019-07-27] MEDS ORDERED: ENBREL50 MG/ML SQ (23:49)
[2019-07-27] MEDS ORDERED: K-DUR 10 MEQ T10 MEQ (23:50)
[2019-07-27] MEDS ORDERED: NATURAL IRON65 MG (23:51)
[2019-07-28] VITALS (670 sets, daily range): BP systolic 106–146; BP diastolic 66–105; PULSE 72–125; TEMP 98.1–98.6; O2SAT 48–100
--- NOTE | 2019-07-28 01:41 | NUR ---
Patient resting in bed, IVs infusing well, patient states she still has abdominal pain but is able to sleep some. See orders for new medications. Patient still in aflutter with RVR but denies any palpitations at this time. Purewick in place, patient complains of bladder getting sore from constant urination due to "water pill".
--- NOTE | 2019-07-28 02:56 | NUR ---
Purewick not suctioning so patient wet, bed change completed and partial bed bath. HepXa out of limits so infusion put on hold per protocol for 2 hours. Patient transfered and assisted with linen change well, IV infusing well, patient uses call light appropriately.
[2019-07-28 05:14] LABS: BASO % 0.5 % (0.0-2.0); EOS % 0.5 % (0-4.0); GRAN # 3.6 (1.4-6.5); GRAN % 63.8 % (42.2-75.2); HEMATOCRIT 39.4 % (37.0-47.0); HEMOGLOBIN 12.4 g/dl (12.5-16.0); LYMPH # 1.2 (1.2-3.4); LYMPH % 20.9 % (20.0-51.0); MEAN CELL VOLUME 92 fl (80.0-100.0); MEAN CORPUSCULAR HEMOGLOBIN 29 pg (27.0-31.0); MEAN CORPUSCULAR HGB CONC 32 g/dl (33.0-37.0); MEAN PLATELET VOLUME 10.9 fl (7.4-10.4); MONO # 0.8 (0.1-0.6); MONO % 13.9 % (1.7-9.3); PLATELET COUNT 379 K/mm3 (130-400); REDCELL DISTRIBUTION WIDTH-CV 21.9 % (11.5-14.5)
[2019-07-28 05:23] LABS: ALBUMIN 4.5 gm/dL (3.5-5.0); BILIRUBIN,TOTAL 0.9 mg/dL (0.0-1.0); CALCIUM 9.7 mg/dL (8.4-10.2); CREATININE, serum 0.87 (0.52-1.25); POTASSIUM 3.7 mmol/L (3.4-5.0); TOTAL PROTEIN 7.8 gm/dL (6.4-8.2)
[2019-07-28] MEDS ORDERED: LIORESAL20 MG PO (10:20)
[2019-07-28] MEDS ORDERED: UROCIT-K 1010 MEQ PO (10:22)
[2019-07-28] MEDS ORDERED: NYSTATIN POWDER15 GM TOP (10:25)
[2019-07-28] MEDS ORDERED: IRON TABLETS325 MG PO (10:25)
[2019-07-28] MEDS ORDERED: CYMBALTA 30MG30 MG PO (10:27)
--- NOTE | 2019-07-28 11:41 | NUR ---
MESSAGE LEFT FOR RN AT THE PAIN CLINIC REGARDING MRI COMPATABILITY WITH PAIN PUMP. AWAITING CALL BACK
[2019-07-28] MEDS ORDERED: VITAMIN C500 MG PO (13:13)
[2019-07-28] MEDS ORDERED: LASIX 20MG TABL20 MG PO (13:13)
[2019-07-28] MEDS ORDERED: FOLIC ACID0.4 MG PO (13:13)
[2019-07-28] MEDS ORDERED: ORENCIA CL125 MG/1 M SQ (13:14)
--- NOTE | 2019-07-28 15:12 | NUR ---
ESTELLA NEWTON CALLED AND UPDATED REGARDING DC CARVAJAL AND WAITING FOR POSSIBLE TELE ORDERS.
--- NOTE | 2019-07-28 15:24 | NUR ---
Patient Service Associate met with the patient to discuss discharge planning. Patient lives alone at [facility] and sees Dr. Mey Nelson for primary care. Patient obtains medications from [facility] in [place] with no difficulties. Patient states she has had some difficulty with mobility and ADLS recently. Patient expressed interest in setting up DPOA-HC. SW assisted patient in completing DPOA-HC which designates her daughter Sean (ph#[phone]) and her mother, Shelbi (ph#[phone]). SW provided patient original and copies and placed a copy in chart. SW to continue to follow to ensure safe discharge.
--- NOTE | 2019-07-28 19:10 | NUR ---
RECEIVED REPORT FROM LAMAR RODRIGUEZ. PT RESTING IN BED WATCHING TV. CALL LIGHT WITHIN REACH. VSS. DENIES ANY NEEDS.
[2019-07-29] VITALS (534 sets, daily range): BP systolic 128–147; BP diastolic 67–83; PULSE 72–79; TEMP 97.5–98.6; O2SAT 77–100
[2019-07-29 05:52] LABS: BASO % 0.5 % (0.0-2.0); EOS # 0.1 (0.0-0.7); EOS % 1.1 % (0-4.0); GRAN # 2.8 (1.4-6.5); GRAN % 64.2 % (42.2-75.2); HEMOGLOBIN 11.4 g/dl (12.5-16.0); LYMPH # 0.9 (1.2-3.4); MEAN CELL VOLUME 91 fl (80.0-100.0); MEAN CORPUSCULAR HEMOGLOBIN 29 pg (27.0-31.0); MEAN CORPUSCULAR HGB CONC 32 g/dl (33.0-37.0); MEAN PLATELET VOLUME 10.8 fl (7.4-10.4); MONO # 0.6 (0.1-0.6); PLATELET COUNT 361 K/mm3 (130-400); RED BLOOD COUNT 3.97 M/mm3 (4.10-5.30); REDCELL DISTRIBUTION WIDTH-CV 21.4 % (11.5-14.5)
[2019-07-29 05:53] LABS: HEMATOCRIT 36.2 % (37.0-47.0)
[2019-07-29 06:01] LABS: CALCIUM 9.5 mg/dL (8.4-10.2); CREATININE, serum 0.91 (0.52-1.25); MAGNESIUM 2.1 mg/dL (1.6-2.3); POTASSIUM 4.1 mmol/L (3.4-5.0)
--- NOTE | 2019-07-29 08:00 | NUR ---
Shift assessment complete at this time. Plan of care reviewed at bedside with patient. Additional time taken to address any other needs or concerns. Vitals stable at this time. Pt denies pain or any other discomforts. Bed in low position, call light within reach, will continue to monitor.
--- NOTE | 2019-07-29 12:00 | NUR ---
Pt resting comfortably in bed. Denies pain or any other discomforts. Vitals stable at this time. Bed in low position, call light within reach, will continue to monitor.
--- NOTE | 2019-07-29 14:01 | NUR ---
Attempted to call report to receiving nurse Halie. Receiving RN will call back shortly when available.
--- NOTE | 2019-07-29 15:20 | NUR ---
PT BROUGHT UP TO MEDICAL FLOOR AT THIS TIME.
--- NOTE | 2019-07-29 19:30 | NUR ---
Received report from Halie. Seen patient awake, lying on bed. Alert and oriented. With 2 INT on right forearm, no redness and swelling noted. Patient denies any pain.
[2019-07-30] VITALS (7 sets, daily range): BP systolic 110–138; BP diastolic 63–79; PULSE 72–87; TEMP 97.5–98.6
--- NOTE | 2019-07-30 05:41 | NUR ---
Patient verbalized having headache and pain on her toes and toenails with pain score of 8/10. PRN Tylenol given.
[2019-07-30 07:36] LABS: BASO % 0.4 % (0.0-2.0); EOS # 0.1 (0.0-0.7); EOS % 1.3 % (0-4.0); GRAN # 2.6 (1.4-6.5); GRAN % 58.2 % (42.2-75.2); HEMATOCRIT 39.5 % (37.0-47.0); HEMOGLOBIN 12.6 g/dl (12.5-16.0); LYMPH # 1.2 (1.2-3.4); LYMPH % 25.7 % (20.0-51.0); MEAN CELL VOLUME 92 fl (80.0-100.0); MEAN CORPUSCULAR HEMOGLOBIN 29 pg (27.0-31.0); MEAN CORPUSCULAR HGB CONC 32 g/dl (33.0-37.0); MEAN PLATELET VOLUME 10.6 fl (7.4-10.4); MONO # 0.6 (0.1-0.6); MONO % 14.2 % (1.7-9.3); PLATELET COUNT 346 K/mm3 (130-400); RED BLOOD COUNT 4.31 M/mm3 (4.10-5.30); REDCELL DISTRIBUTION WIDTH-CV 21.4 % (11.5-14.5)
[2019-07-30 07:50] LABS: CREATININE, serum 0.98 (0.52-1.25); MAGNESIUM 1.9 mg/dL (1.6-2.3); POTASSIUM 4.6 mmol/L (3.4-5.0)
--- NOTE | 2019-07-30 20:00 | NUR ---
Received report from LAMAR Ambrose. Assessment complete. c/o pain to hip/pelvis, rate 8-9/10. Pt refused Tylenol. Pt is with pain pump located to RLQ of abdomen. Scheduled meds administered. Tele monitor in place, leads checked. External cath replaced and set to low continuous suction. Needs met. Call light within reach.
[2019-07-31 04:02] VITALS: BP 122/71; PULSE 72; TEMP 98.4
[2019-07-31 06:09] LABS: BASO % 0.4 % (0.0-2.0); EOS # 0.1 (0.0-0.7); EOS % 1.3 % (0-4.0); GRAN # 2.9 (1.4-6.5); GRAN % 60.1 % (42.2-75.2); HEMATOCRIT 39.6 % (37.0-47.0); HEMOGLOBIN 12.4 g/dl (12.5-16.0); LYMPH # 1.1 (1.2-3.4); LYMPH % 23.8 % (20.0-51.0); MEAN CELL VOLUME 93 fl (80.0-100.0); MEAN CORPUSCULAR HEMOGLOBIN 29 pg (27.0-31.0); MEAN CORPUSCULAR HGB CONC 31 g/dl (33.0-37.0); MEAN PLATELET VOLUME 10.4 fl (7.4-10.4); MONO # 0.7 (0.1-0.6); PLATELET COUNT 346 K/mm3 (130-400); RED BLOOD COUNT 4.26 M/mm3 (4.10-5.30); REDCELL DISTRIBUTION WIDTH-CV 21.2 % (11.5-14.5)
[2019-07-31 06:26] LABS: CALCIUM 9.8 mg/dL (8.4-10.2); CREATININE, serum 1.2 (0.52-1.25); MAGNESIUM 1.9 mg/dL (1.6-2.3); POTASSIUM 4.1 mmol/L (3.4-5.0)
--- NOTE | 2019-07-31 06:38 | NUR ---
Pt uneventful during this shift. meds administered as ordered. Call light within reach. needs met.
--- NOTE | 2019-07-31 07:12 | NUR ---
Report given to LAMAR Ambrose.
[2019-07-31 07:32] VITALS: BP 127/71; PULSE 85; TEMP 97.7
--- NOTE | 2019-07-31 10:01 | NUR ---
PT HAD SOME C/O NAUSEA AND HEADACHE. GAVE SOME TYLENOL, NO NAUSEA MED AVALIBLE. WILL RECHECK WITH PT AND SEE IF FEELING BETTER, IF NEEDED WILL OBTAIN PRN ORDER FOR SOME ANTIEMETICS.
[2019-07-31 12:44] VITALS: BP 11/59; PULSE 76; TEMP 97.7
[2019-07-31] MEDS ORDERED: BETAPACE 80MG80 MG PO (13:44)
[2019-07-31] MEDS ORDERED: ELIQUIS 5MG PO (13:46)
[2019-07-31] MEDS ORDERED: LASIX 20MG TABL20 MG PO (15:12)
--- NOTE | 2019-07-31 15:29 | NUR ---
The patient is to discharge back home today, 07/31. COLLIN met with the patient to review discharge plan. The patient reports that she has some concerns for Afib at home and being able to extend her legs. COLLIN discussed home health services for nursing and PT. The patient reports that she would be interested in home health. COLLIN then provided her with Medicare.gov's list of home health agencies that serve [place]. The patient then stated that she was not interested in getting services at this time and would like to talk to her nurse with [facility] about what services are provided through there. The patient had no other questions or concerns for COLLIN. COLLIN presented and explained the IM form. The patient verbalized understanding, signed, and she was provided a copy. No additional needs at this time.
--- NOTE | 2019-07-31 16:00 | NUR ---
PT EDUCATION WAS PROVIDED. IV'S AND TELE REMOVED WITHOUT ISSUES. INFORMED PT OF APPOINTMENTS AND MED ORDER CHANGES. UNABLE TO GET MRI, FAXED DOCUMENTATION TO MRI FOR PT TO GET MRI UPCOMING OUTPT.
--- NOTE | 2019-07-31 16:20 | NUR ---
PT ESCORTED DARLYN BY EMERGENCY PREPAREDNESS COORDINATOR, EMERGENCY PREPAREDNESS COORDINATOR WAITED WITH PT FOR RIDE TO ARRIVE
== END 2019-07-31 16:40 | disposition home or self-care (01) | DRG 309 ==
LOC: COL.ER 15:12 → ICU 19:25 → MEDICAL 07-29 15:02
PROVIDERS: Emergency Medicine; ADMIT Internal Medicine
PROC: 5A2204Z Restoration of Cardiac Rhythm, Single (ICD-10-PCS; principal; 2019-07-28)
DX: I48.0 Paroxysmal atrial fibrillation (principal); I50.20 Unspecified systolic (congestive) heart failure; I08.1 Rheumatic disorders of both mitral and tricuspid valves; I48.92 Unspecified atrial flutter; G89.29 Other chronic pain; M06.9 Rheumatoid arthritis, unspecified; M32.9 Systemic lupus erythematosus, unspecified; M47.9 Spondylosis, unspecified; M79.7 Fibromyalgia; G47.33 Obstructive sleep apnea (adult) (pediatric); I25.10 Atherosclerotic heart disease of native coronary artery without angina pectoris; F17.210 Nicotine dependence, cigarettes, uncomplicated; E78.5 Hyperlipidemia, unspecified; E03.9 Hypothyroidism, unspecified; Z96.641 Presence of right artificial hip joint; Z96.653 Presence of artificial knee joint, bilateral; I11.0 Hypertensive heart disease with heart failure; F41.9 Anxiety disorder, unspecified; K31.84 Gastroparesis; K58.9 Irritable bowel syndrome, unspecified; Z86.73 Personal history of transient ischemic attack (TIA), and cerebral infarction without residual deficits; Z87.442 Personal history of urinary calculi; Z86.711 Personal history of pulmonary embolism; Z86.718 Personal history of other venous thrombosis and embolism; Z79.02 Long term (current) use of antithrombotics/antiplatelets; Z79.82 Long term (current) use of aspirin; I25.2 Old myocardial infarction; Z85.3 Personal history of malignant neoplasm of breast; Z90.49 Acquired absence of other specified parts of digestive tract; Z90.710 Acquired absence of both cervix and uterus; Z79.891 Long term (current) use of opiate analgesic; Z88.6 Allergy status to analgesic agent; Z88.1 Allergy status to other antibiotic agents; Z88.5 Allergy status to narcotic agent; Z88.0 Allergy status to penicillin; Z88.8 Allergy status to other drugs, medicaments and biological substances; Z91.018 Allergy to other foods; Z91.048 Other nonmedicinal substance allergy status; Z91.012 Allergy to eggs
CPT/HCPCS: 99223-AI; 99231-AI; 99232-AI; 99239; J1644; J1940; J2704; Q9967

== ENCOUNTER → 2019-08-31 | Outpatient (CLI) | payer MEDICARE, BC ==
[~2019-08-31] MED LIST changes: +BETAPACE 80MG80 MG PO; +ELIQUIS 5MG PO; +ENBREL50 MG/ML SQ; +FOLIC ACID0.4 MG PO; +IRON TABLETS325 MG PO; +K-DUR 10 MEQ T10 MEQ; +LOPRESSOR 225 MG/TAB PO; +NATURAL IRON65 MG; +NYSTATIN POWDER15 GM TOP; +ORENCIA CL125 MG/1 M SQ; +PEPCID 20MG TAB20 MG PO; +UROCIT-K 1010 MEQ PO; +VITAMIN C500 MG PO
== END ==
LOC: COL.RAD 12:52
DX: G31.9 Degenerative disease of nervous system, unspecified (principal); I67.82 Cerebral ischemia
CPT/HCPCS: A9585

== ENCOUNTER 2019-09-07 12:22 | Emergency (ER) | payer MEDICARE, BC ==
[~2019-09-07] VITALS: Ht 162.6 cm; Wt 90.9 kg
[2019-09-07 12:44] VITALS: TEMP 99
[2019-09-07 15:01] LABS: BASO % 0.2 % (0.0-2.0); GRAN # 3.9 (1.4-6.5); GRAN % 72.4 % (42.2-75.2); HEMATOCRIT 39.8 % (37.0-47.0); HEMOGLOBIN 12.5 g/dl (12.5-16.0); LYMPH # 0.8 (1.2-3.4); MEAN CELL VOLUME 95 fl (80.0-100.0); MEAN CORPUSCULAR HEMOGLOBIN 30 pg (27.0-31.0); MEAN CORPUSCULAR HGB CONC 31 g/dl (33.0-37.0); MEAN PLATELET VOLUME 10.6 fl (7.4-10.4); MONO # 0.7 (0.1-0.6); PLATELET COUNT 295 K/mm3 (130-400); RED BLOOD COUNT 4.17 M/mm3 (4.10-5.30); REDCELL DISTRIBUTION WIDTH-CV 18.9 % (11.5-14.5)
[2019-09-07 15:22] LABS: ALANINE AMINOTRANSFERASE 18 U/L (9-52); ALBUMIN 4.3 gm/dL (3.5-5.0); ALKALINE PHOSPHATASE 87 U/L (50-136); ANION GAP 7 mmol/L (7-16); AST,SGOT 26 U/L (15-37); BILIRUBIN,TOTAL 1.1 mg/dL (0.0-1.0); BLOOD UREA NITROGEN 16 mg/dL (7-17); C-REACTIVE PROTEIN < 0.5 mg/dL (0.0-0.9); CARBON DIOXIDE 31 mmol/L (22-30); CHLORIDE 99 mmol/L (98-107); CREATININE, serum 0.88 (0.52-1.25); GLUCOSE 81 mg/dL (74-106); POTASSIUM 3.7 mmol/L (3.4-5.0); SODIUM 137 mmol/L (137-145); TOTAL PROTEIN 7.7 gm/dL (6.4-8.2)
[2019-09-07 15:30] VITALS: BP 136/72; PULSE 92
== END 2019-09-07 15:35 | disposition home or self-care (01) ==
LOC: COL.ER 12:22
PROVIDERS: Physician Assistant
DX: R51 Headache (principal); I10 Essential (primary) hypertension; I48.91 Unspecified atrial fibrillation; F41.9 Anxiety disorder, unspecified; Z90.89 Acquired absence of other organs; Z90.710 Acquired absence of both cervix and uterus; Z79.01 Long term (current) use of anticoagulants

== ENCOUNTER 2019-09-21 15:51 | Outpatient (CLI) | payer MEDICARE, BC ==
[~2019-09-21] VITALS: Ht 162.6 cm; Wt 100.2 kg
[2019-09-21 16:05] VITALS: BP 161/83; PULSE 64; TEMP 98
[2019-09-22] MEDS ORDERED: AMITIZA24 MCG PO (12:35)
[2019-09-22] MEDS ORDERED: AMOXICILLIN 50500 MG PO (12:36)
[2019-09-22] MEDS ORDERED: XARELTO20 MG PO (12:51)
== END 2019-09-21 17:58 | disposition home or self-care (01) ==
LOC: EUO 15:51
DX: M81.0 Age-related osteoporosis without current pathological fracture (principal)
CPT/HCPCS: J3489

== ENCOUNTER 2019-11-30 14:17 | Inpatient (IN) | payer MEDICARE, BC ==
[~2019-11-30] VITALS: Ht 162.6 cm; Wt 100.5 kg
[~2019-11-30 14:17] MED LIST changes: +XARELTO20 MG PO
[2019-11-30 15:21] LABS: BASO % 0.3 % (0.0-2.0); EOS # 0.1 (0.0-0.7); EOS % 1.1 % (0-4.0); GRAN # 4.2 (1.4-6.5); GRAN % 67.5 % (42.2-75.2); HEMATOCRIT 37.8 % (37.0-47.0); HEMOGLOBIN 12.1 g/dl (12.5-16.0); LYMPH # 1.2 (1.2-3.4); LYMPH % 18.5 % (20.0-51.0); MEAN CELL VOLUME 97 fl (80.0-100.0); MEAN CORPUSCULAR HEMOGLOBIN 31 pg (27.0-31.0); MEAN CORPUSCULAR HGB CONC 32 g/dl (33.0-37.0); MEAN PLATELET VOLUME 10.4 fl (7.4-10.4); MONO # 0.8 (0.1-0.6); MONO % 12.1 % (1.7-9.3); PLATELET COUNT 299 K/mm3 (130-400); RED BLOOD COUNT 3.91 M/mm3 (4.10-5.30); REDCELL DISTRIBUTION WIDTH-CV 14.6 % (11.5-14.5)
[2019-11-30 15:25] LABS: INR 1.2 (0.8-3.0); PROTHROMBIN TIME 13.8 SECONDS (9.7-12.8)
[2019-11-30 15:32] LABS: ALBUMIN 4.3 gm/dL (3.5-5.0); CALCIUM 9.4 mg/dL (8.4-10.2); CREATININE, serum 0.98 (0.52-1.25); POTASSIUM 4.5 mmol/L (3.4-5.0); TOTAL PROTEIN 7.9 gm/dL (6.4-8.2)
[2019-11-30] MEDS ORDERED: COUMADIN 1010 MG/TAB PO (16:04)
--- NOTE | 2019-11-30 18:40 | NUR ---
Patient up to room 331 by avel x 1 assist to restroom with walker. Oriented to room. Will report off to night filler.
--- NOTE | 2019-11-30 19:30 | NUR ---
Admission B assessment complete at this time. Patient is oriented but continues to fall asleep throughout our conversation. She states this drowsiness may be due to getting dilaudid in the ED, in addition to her having a dilaudid pump implanted in her R abdomen. Her L thigh hematoma side contains two openings, both of which are draining blood. This site is covered with gauze and paper tape, as she is allergic to medical tape. She notices a darkened area on her R upper thigh as well that she states is similar to what the L hematoma looked like at first. Her lower legs bilaterally are edematous 3+ and appear reddened and warm to the touch. She states this is not normal for her. She has an old, round biopsy site on her lateral left calf that is not draining. Her heart sounds are regular and normal, lungs are clear and pulses are 2/2. She is fed dinner around 2100, after this request is cleared with Dr. Kinsey because there is no notation for surgical intervention. Will continue to monitor hematoma site and change dressing as needed.
[2019-11-30 22:32] VITALS: BP 145/77; PULSE 94; TEMP 98.1
[2019-11-30 23:16] LABS: HEMOGLOBIN 11.3 g/dl (12.5-16.0)
[2019-12-01] VITALS (7 sets, daily range): BP systolic 115–150; BP diastolic 53–76; PULSE 71–85; TEMP 97.8–98.6
--- NOTE | 2019-12-01 05:56 | NUR ---
Patient has slept throughout the majority of the night. She woke up once requesting pain medication in addition to her dilaudid pump. This information will be noted in dayshift report. This RN has changed her hematoma dressing two times with gauze and paper tape. Her upper legs do appear more reddened and warm compared to when she first came to the unit. She has noted a darkened area on her R thigh which is similar to what her L thigh hematoma looked like at first. It has grown in size throughout the night. Will continue to monitor.
[2019-12-01 06:40] LABS: HEMOGLOBIN 10.9 g/dl (12.5-16.0); MEAN CELL VOLUME 96 fl (80.0-100.0); MEAN CORPUSCULAR HEMOGLOBIN 30 pg (27.0-31.0); MEAN CORPUSCULAR HGB CONC 31 g/dl (33.0-37.0); MEAN PLATELET VOLUME 11.4 fl (7.4-10.4); PLATELET COUNT 260 K/mm3 (130-400); RED BLOOD COUNT 3.61 M/mm3 (4.10-5.30); REDCELL DISTRIBUTION WIDTH-CV 14.5 % (11.5-14.5)
[2019-12-01 06:52] LABS: HEMATOCRIT 34.7 % (37.0-47.0)
[2019-12-01 06:53] LABS: CALCIUM 8.8 mg/dL (8.4-10.2); CREATININE, serum 0.77 (0.52-1.25); POTASSIUM 3.9 mmol/L (3.4-5.0)
[2019-12-01 08:05] LABS: BAND 1 % (0-10); LYMPHOCYTE 35 % (20.0-51.0); NEUTROPHILS 56 % (42.0-75.2); NUCLEATED RED BLOOD CELL 1 (0-6); PLATELET ESTIMATE NORMAL (NORMAL)
--- NOTE | 2019-12-01 11:03 | NUR ---
Pt assessment completed and charted. Medications administered per SEP. Pt is awake, A&O, SBA w/ walker. Pt has RFA INT IV that flushes w/o complications. Pt on room air, denies any dizziness, SOB, N/V/D, chest pain. Pt denies pain to thighs unless palpating/pushing, has some tenderness. Lt thigh has gauze and paper tape to site/hematoma, no active bleeding. Dressing was changed with shift supervisor rn nurse. Thigh is slightly swollen, red, hard. Pt states rt thigh is "starting to feel how left thigh started". Rt thigh is red, tender. No further needs expressed at this time.
--- NOTE | 2019-12-01 11:39 | NUR ---
Pt dressing to lt thigh changed, some bleeding noted, has not saturated gauze, tape not sticking, new dressing/gauze and paper tape applied. Pt requesting something for pain, states her legs "are bothering her, starting to hurt". Percocet administered per SEP.
--- NOTE | 2019-12-01 16:29 | NUR ---
Head Operator met with patient to discuss discharge planning. Patient lives alone in [place] and sees Dr. Nelson for primary care. Patient obtains her medications from [facility] or [facility]. Patient reports she is independent with ADLS but has trouble reaching her back when bathing. Patient states she has a handicap accessible bathroom. Patient has a walker and CPAP at home. Patient's DP-HC designates her mother Shelbi (ph#[phone]) and daughter Sean (ph#[phone]). Patient plans to return home upon discharge. No additional needs at this time.
--- NOTE | 2019-12-01 19:34 | NUR ---
Pt doing well, sitting in bed. Dressing change, minimal bleeding noted, less gauze had been used than prior dressings, pt also up to use bathroom. New dressing applied. No active bleeding. Report given to LAMAR Valentino.
--- NOTE | 2019-12-01 23:30 | NUR ---
This nurse called Naila about patient asking for sleeping pills. Melatonin was ordered and given to patient.
[2019-12-02 04:00] VITALS: BP 151/76; PULSE 75; TEMP 97.8
[2019-12-02 07:15] LABS: BASO % 0.4 % (0.0-2.0); EOS # 0.1 (0.0-0.7); EOS % 1.6 % (0-4.0); GRAN % 59.4 % (42.2-75.2); HEMOGLOBIN 11.5 g/dl (12.5-16.0); LYMPH # 1.2 (1.2-3.4); LYMPH % 24.8 % (20.0-51.0); MEAN CELL VOLUME 98 fl (80.0-100.0); MEAN CORPUSCULAR HEMOGLOBIN 31 pg (27.0-31.0); MEAN CORPUSCULAR HGB CONC 32 g/dl (33.0-37.0); MEAN PLATELET VOLUME 11.1 fl (7.4-10.4); MONO # 0.7 (0.1-0.6); MONO % 13.4 % (1.7-9.3); PLATELET COUNT 286 K/mm3 (130-400); RED BLOOD COUNT 3.72 M/mm3 (4.10-5.30); REDCELL DISTRIBUTION WIDTH-CV 14.6 % (11.5-14.5)
[2019-12-02 07:23] LABS: HEMATOCRIT 36.3 % (37.0-47.0)
--- NOTE | 2019-12-02 07:33 | NUR ---
Noted to have a slight blood in her gauze in the left thigh. She states she has pain of 7-8/10. Oxycodone PRN given. She went up to the bathroom with her walker. Endorsed patient to Kya.
[2019-12-02 07:52] LABS: C-REACTIVE PROTEIN 0.7 mg/dL (0.0-0.9); CALCIUM 9.6 mg/dL (8.4-10.2); CREATININE, serum 0.85 (0.52-1.25); POTASSIUM 4.1 mmol/L (3.4-5.0)
[2019-12-02 07:58] VITALS: BP 128/60; PULSE 65; TEMP 97.7
[2019-12-02 12:10] VITALS: BP 122/61; PULSE 74; TEMP 98.5
[2019-12-02 16:04] VITALS: BP 128/54; PULSE 66; TEMP 97.8
[2019-12-02 19:41] VITALS: BP 122/42; PULSE 70; TEMP 97.8
--- NOTE | 2019-12-02 19:41 | NUR ---
Received report from Kya. Seen patient awake, sitting on bed. Denies any pain. With INT on right wrist. Dressing on her left hip is clean, dry and intact. Will continue to monitor for bleeding.
[2019-12-02 23:26] VITALS: BP 136/78; PULSE 64; TEMP 98.9
--- NOTE | 2019-12-03 03:14 | NUR ---
Patient states her left hip is bleeding again upon standing up on her way to the bathroom. Gauze changed. She complains of pain on her back, pain score of 8/10, Oxycodone given.
[2019-12-03 03:18] VITALS: BP 146/68; PULSE 64; TEMP 97.6
[2019-12-03 07:25] LABS: BASO % 0.5 % (0.0-2.0); EOS # 0.1 (0.0-0.7); EOS % 1.2 % (0-4.0); GRAN # 3.5 (1.4-6.5); GRAN % 60.2 % (42.2-75.2); HEMOGLOBIN 12.1 g/dl (12.5-16.0); LYMPH # 1.4 (1.2-3.4); LYMPH % 24.4 % (20.0-51.0); MEAN CELL VOLUME 96 fl (80.0-100.0); MEAN CORPUSCULAR HEMOGLOBIN 31 pg (27.0-31.0); MEAN CORPUSCULAR HGB CONC 32 g/dl (33.0-37.0); MEAN PLATELET VOLUME 10.8 fl (7.4-10.4); MONO # 0.8 (0.1-0.6); MONO % 13.4 % (1.7-9.3); PLATELET COUNT 281 K/mm3 (130-400); RED BLOOD COUNT 3.94 M/mm3 (4.10-5.30); REDCELL DISTRIBUTION WIDTH-CV 14.4 % (11.5-14.5)
[2019-12-03 07:31] LABS: CALCIUM 9.9 mg/dL (8.4-10.2); POTASSIUM 4.5 mmol/L (3.4-5.0)
[2019-12-03 07:33] LABS: CREATININE, serum 0.81 (0.52-1.25)
[2019-12-03 12:15] VITALS: BP 135/58; PULSE 69; TEMP 97.9
[2019-12-03 15:48] VITALS: BP 130/67; PULSE 67; TEMP 97.6
[2019-12-03 21:19] VITALS: BP 136/82; PULSE 84; TEMP 98.4
--- NOTE | 2019-12-03 23:40 | NUR ---
Patient states she has back pain of 8/10. Oxycodone PRN given.
[2019-12-04 00:15] VITALS: BP 147/68; PULSE 67; TEMP 98.6
--- NOTE | 2019-12-04 01:00 | NUR ---
Patient states her INT is painful and she wants it to be removed. She says if she needs to be reinserted tomorrow then it's okay with her but not tonight since she doesn't have IV meds and she knows she's going home tomorrow. Dressing changed on her left thigh.
[2019-12-04 03:56] VITALS: BP 151/79; PULSE 67; TEMP 98.2
[2019-12-04 06:25] LABS: HEMOGLOBIN 11.7 g/dl (12.5-16.0); MEAN CELL VOLUME 95 fl (80.0-100.0); MEAN CORPUSCULAR HEMOGLOBIN 31 pg (27.0-31.0); MEAN CORPUSCULAR HGB CONC 32 g/dl (33.0-37.0); MEAN PLATELET VOLUME 10.4 fl (7.4-10.4); PLATELET COUNT 310 K/mm3 (130-400); RED BLOOD COUNT 3.84 M/mm3 (4.10-5.30); REDCELL DISTRIBUTION WIDTH-CV 14.3 % (11.5-14.5)
[2019-12-04 06:29] LABS: HEMATOCRIT 36.4 % (37.0-47.0)
[2019-12-04 06:36] LABS: CALCIUM 10.2 mg/dL (8.4-10.2); CREATININE, serum 1.02 (0.52-1.25); POTASSIUM 4.1 mmol/L (3.4-5.0)
[2019-12-04 07:41] VITALS: BP 156/72; PULSE 69; TEMP 98.4
[2019-12-04 07:51] LABS: EOSINOPHIL 1 % (0-4); LYMPHOCYTE 38 % (20.0-51.0); NEUTROPHILS 50 % (42.0-75.2); PLATELET ESTIMATE NORMAL (NORMAL)
--- NOTE | 2019-12-04 10:00 | NUR ---
PATIENT SITTING UP AT THE EDGE OF THE BED THIS MORNING. PATIENT IS A&OX4. VSS. BOWEL SOUNDS ACTIVE ALL FOUR QUADRANTS. PATIENT TOLERATING DIET WITHOUT ANY COMPLAINTS OF N/V. POSITIVE PEDAL PULSES EQUAL BILATERALLY. 2+ PITTING-EDEMA TO BLE. GENERALIZED WEAKNESS NOTED. LEFT THIGH DRESSED WITH GAUZE AND PAPER TAPE AND IS CD&I. PATIENT RATING HER PAIN AN 8/10 ON A 0-10 SCALE. PATIENT DESCRIBES IT A SHARP PAIN IN THE BACK AND THIGH. PATIENT GIVEN PRN PO PAIN MEDICATION. CALL LIGHT WITHIN REACH. PATIENT DENIES ANY OTHER NEEDS AT THIS TIME.
[2019-12-04] MEDS ORDERED: DOXYCYCLINE 10100 MG PO (10:34)
[2019-12-04] MEDS ORDERED: AMOXICILLIN 8751 TAB PO (10:34)
[2019-12-04] MEDS ORDERED: PERCOCET 325 MG1 TAB PO (10:35)
--- NOTE | 2019-12-04 11:25 | NUR ---
First visit from the hydro station operator. No needs right now.
[2019-12-04 11:57] VITALS: BP 135/69; PULSE 67; TEMP 97.6
[2019-12-04 12:05] LABS: PROTHROMBIN TIME 11.3 SECONDS (9.7-12.8)
[2019-12-04 12:07] LABS: PARTIAL THROMBOPLASTIN TIME 35.6 SECONDS (26.0-37.0)
--- NOTE | 2019-12-04 12:17 | NUR ---
PATIENT STATES THAT SHE FEELS SLIGHTLY NAUSEATED. PATIENT GIVEN A SPRITE. PATIENT DENIES NEED FOR NAUSEA MEDICATION AT THIS TIME. PATIENT STATES THAT HER PAIN IS GOOD AT THIS TIME.
--- NOTE | 2019-12-04 15:30 | NUR ---
DISCHARGE INSTRUCTIONS REVIEWED WITH PATIENT. QUESTIONS SOUGHT AND ANSWERED. PATIENTS LEFT THIGH RE-DRESSED WITH GAUZE AND HYPAFIX. PATIENT PERSONAL BELONGINGS GATHERED. PATIENT TAKEN TO PERSONAL VEHICLE VIA WHEELCHAIR. PATIENT DISCHARGED.
== END 2019-12-04 15:30 | disposition home or self-care (01) | DRG 605 ==
LOC: COL.ER 14:17 → JCC 15:36
PROVIDERS: Emergency Medicine; Nurse Practitioner Family; Physician Assistant; ADMIT Student in an Organized Health Care Education/Training Program
DX: S70.12XA Contusion of left thigh, initial encounter (principal); I50.22 Chronic systolic (congestive) heart failure; L03.116 Cellulitis of left lower limb; L03.115 Cellulitis of right lower limb; E87.3 Alkalosis; I11.0 Hypertensive heart disease with heart failure; F32.9 Major depressive disorder, single episode, unspecified; I48.91 Unspecified atrial fibrillation; M79.7 Fibromyalgia; K21.9 Gastro-esophageal reflux disease without esophagitis; X58.XXXA Exposure to other specified factors, initial encounter; G47.33 Obstructive sleep apnea (adult) (pediatric); M06.9 Rheumatoid arthritis, unspecified; Z88.5 Allergy status to narcotic agent; K31.84 Gastroparesis; F41.9 Anxiety disorder, unspecified; F17.210 Nicotine dependence, cigarettes, uncomplicated; Z79.01 Long term (current) use of anticoagulants; Z79.1 Long term (current) use of non-steroidal anti-inflammatories (NSAID); Z99.81 Dependence on supplemental oxygen; Z86.73 Personal history of transient ischemic attack (TIA), and cerebral infarction without residual deficits; Z86.718 Personal history of other venous thrombosis and embolism; Z96.652 Presence of left artificial knee joint; Z96.641 Presence of right artificial hip joint; Z90.710 Acquired absence of both cervix and uterus; Z88.2 Allergy status to sulfonamides; Z88.1 Allergy status to other antibiotic agents; Z88.6 Allergy status to analgesic agent; M32.9 Systemic lupus erythematosus, unspecified
CPT/HCPCS: OP; 99222-AI; 99232-AI; 99239; G0378; J1170; J7030

== ENCOUNTER 2019-12-14 11:08 | Outpatient (CLI) | payer MEDICARE, BC ==
[~2019-12-14] VITALS: Ht 162.7 cm; Wt 103.1 kg
[~2019-12-14 11:08] MED LIST changes: +AMOXICILLIN 8751 TAB PO; +COUMADIN 1010 MG/TAB PO; +DOXYCYCLINE 10100 MG PO
[2019-12-14 11:58] VITALS: BP 146/83; PULSE 82; TEMP 97
[2019-12-14] MEDS ORDERED: COUMADIN 1010 MG/TAB PO (12:24)
[2019-12-14 12:30] LABS: HEMATOCRIT 38.2 % (37.0-47.0); HEMOGLOBIN 12.2 g/dl (12.5-16.0); MEAN CELL VOLUME 97 fl (80.0-100.0); MEAN CORPUSCULAR HEMOGLOBIN 31 pg (27.0-31.0); MEAN CORPUSCULAR HGB CONC 32 g/dl (33.0-37.0); MEAN PLATELET VOLUME 10.6 fl (7.4-10.4); PLATELET COUNT 299 K/mm3 (130-400); RED BLOOD COUNT 3.94 M/mm3 (4.10-5.30); REDCELL DISTRIBUTION WIDTH-CV 14.4 % (11.5-14.5)
--- NOTE | 2019-12-14 13:30 | NUR ---
PT ARRIVES TO ROOM. SLEEPY.
[2019-12-14 13:45] VITALS: BP 143/71; PULSE 87; TEMP 97
[2019-12-14 14:15] VITALS: BP 131/77; PULSE 84
[2019-12-14 14:21] LABS: PROTHROMBIN TIME 22.3 SECONDS (9.7-12.8)
[2019-12-14 14:27] LABS: CALCIUM 10.1 mg/dL (8.4-10.2); CREATININE, serum 0.83 (0.52-1.25); POTASSIUM 4.1 mmol/L (3.4-5.0)
[2019-12-14 14:30] VITALS: BP 147/78; PULSE 82; TEMP 97
[2019-12-14] MEDS ORDERED: DOXYCYCLINE 10100 MG PO (14:44)
[2019-12-14 15:00] VITALS: BP 139/62; PULSE 80; TEMP 97.2
== END 2019-12-14 15:30 | disposition home or self-care (01) ==
LOC: COL.RAD 11:08
PROVIDERS: Internal Medicine Cardiovascular Disease
DX: Z01.812 Encounter for preprocedural laboratory examination (principal); R22.42 Localized swelling, mass and lump, left lower limb; I48.0 Paroxysmal atrial fibrillation
CPT/HCPCS: J2704

== ENCOUNTER 2020-02-06 12:12 | Emergency (ER) | payer MEDICARE, BC ==
[~2020-02-06] VITALS: Ht 162.6 cm; Wt 106.4 kg
[2020-02-06 12:26] VITALS: BP 163/99; TEMP 98.8
[2020-02-06 13:44] LABS: BASO % 0.6 % (0.0-2.0); EOS # 0.1 (0.0-0.7); EOS % 1.5 % (0-4.0); GRAN # 3.1 (1.4-6.5); GRAN % 58.1 % (42.2-75.2); HEMATOCRIT 39.6 % (37.0-47.0); HEMOGLOBIN 12.4 g/dl (12.5-16.0); LYMPH # 1.4 (1.2-3.4); MEAN CELL VOLUME 98 fl (80.0-100.0); MEAN CORPUSCULAR HEMOGLOBIN 31 pg (27.0-31.0); MEAN CORPUSCULAR HGB CONC 31 g/dl (33.0-37.0); MEAN PLATELET VOLUME 10.7 fl (7.4-10.4); MONO # 0.7 (0.1-0.6); MONO % 13.4 % (1.7-9.3); PLATELET COUNT 260 K/mm3 (130-400); RED BLOOD COUNT 4.06 M/mm3 (4.10-5.30); REDCELL DISTRIBUTION WIDTH-CV 14.6 % (11.5-14.5)
[2020-02-06 13:56] LABS: INR 1.2 (0.8-3.0)
[2020-02-06 13:58] LABS: ALANINE AMINOTRANSFERASE 17 U/L (4-34); ALBUMIN 4.1 gm/dL (3.5-5.0); ALKALINE PHOSPHATASE 117 U/L (50-136); ANION GAP 7 mmol/L (7-16); AST,SGOT 26 U/L (15-37); BILIRUBIN,TOTAL 0.8 mg/dL (0.0-1.0); BLOOD UREA NITROGEN 15 mg/dL (7-17); CALCIUM 9.6 mg/dL (8.4-10.2); CARBON DIOXIDE 31 mmol/L (22-30); CHLORIDE 99 mmol/L (98-107); CREATININE, serum 0.99 (0.52-1.25); GLUCOSE 81 mg/dL (74-106); POTASSIUM 4.1 mmol/L (3.4-5.0); SODIUM 137 mmol/L (137-145); TOTAL PROTEIN 7.5 gm/dL (6.4-8.2)
[2020-02-06 13:59] LABS: PARTIAL THROMBOPLASTIN TIME 42.7 SECONDS (26.0-37.0)
[2020-02-06 14:12] LABS: TROPONIN-I < 0.012 ng/mL (0.000-0.035)
[2020-02-06] MEDS ORDERED: CARAFATE 1GM1 G PO (15:16)
[2020-02-06 15:45] LABS: COLLECTION METHOD CLEAN CATCH
[2020-02-06 15:54] LABS: PH 7 (5-8); SQUAMOUS EPITHELIAL 0-2 /hpf; URINE APPEARANCE Clear; URINE BACTERIA None Seen /hpf; URINE BILIRUBIN Negative (NEGATIVE); URINE BLOOD Negative (NEGATIVE); URINE COLOR Yellow; URINE GLUCOSE Negative (NEGATIVE); URINE KETONE Negative (NEGATIVE); URINE LEUKOCYTE ESTERASE Negative (NEGATIVE); URINE NITRATE Negative (NEGATIVE); URINE PROTEIN(semi-quant) Negative (NEGATIVE); URINE UROBILINOGEN Negative (NEGATIVE)
[2020-02-06 16:19] VITALS: PULSE 68
== END 2020-02-06 16:15 | disposition home or self-care (01) ==
LOC: COL.ER 12:12
PROVIDERS: Emergency Medicine
DX: K20.9 Esophagitis, unspecified (principal); I48.91 Unspecified atrial fibrillation; M06.9 Rheumatoid arthritis, unspecified; Z79.01 Long term (current) use of anticoagulants; Z86.73 Personal history of transient ischemic attack (TIA), and cerebral infarction without residual deficits
CPT/HCPCS: J2550

== ENCOUNTER 2020-04-09 13:09 | Observation (INO) | payer MEDICARE, BC ==
[~2020-04-09] VITALS: Ht 162.6 cm; Wt 108.0 kg
[~2020-04-09 13:09] MED LIST changes: +ALIGN PO; +CARAFATE 1GM1 G PO; +DIFLUCAN 100MG100 MG PO; +IMODIUM 2MG CAPS2 MG PO; +LUNESTA 1MG TAB1 MG PO; +TEMOVATE0.052 TOP; +TRIAMCINOLONE A15 GM TP; +WELLBUTRIN SR150 M1 PO
[2020-04-09] MEDS ORDERED: BETAPACE AF80 MG/TA1 PO (18:13)
[2020-04-09] MEDS ORDERED: LINZESS290CAP PO (18:16)
[2020-04-09] MEDS ORDERED: PAMELOR 25MG25 MG PO (18:26)
[2020-04-09] MEDS ORDERED: DILAUDID 4MG TAB4 MG PO (18:28)
[2020-04-09] MEDS ORDERED: CYMBALTA 30MG30 MG PO (18:28)
[2020-04-09] MEDS ORDERED: VALIUM 10MG10 MG/TAB PO (18:31)
[2020-04-09] MEDS ORDERED: FERROUS SU325 MG/TAB PO (18:34)
[2020-04-09] MEDS ORDERED: PEPCID 20MG TAB20 MG PO (18:35)
[2020-04-09] MEDS ORDERED: UROCIT-K 1010 MEQ PO (18:36)
[2020-04-09] MEDS ORDERED: PROVENTIL0.09 MG/A1 IH (18:39)
--- NOTE | 2020-04-09 20:00 | NUR ---
Received patient via wheelchair. She is alert and oriented. She came in due to frequent falls. Fall risk protocol initiated. Changed patient's clothes to yellow gown. Fall risk band and signages placed. She states she's left arm restrict due to her breast cancer. Restricted extremity band and signage placed as well. Abby JEFF was inside patient's room doing assesment.
[2020-04-09] MEDS ORDERED: LASIX 20MG TABL20 MG PO ×2 (20:44)
[2020-04-09 21:41] LABS: COLLECTION METHOD CLEAN CATCH
[2020-04-09 21:48] LABS: MUCOUS Present /lpf; PH 6 (5-8); URINE APPEARANCE Clear; URINE BACTERIA None Seen /hpf; URINE BILIRUBIN Negative (NEGATIVE); URINE BLOOD Negative (NEGATIVE); URINE COLOR Yellow; URINE GLUCOSE Negative (NEGATIVE); URINE KETONE Negative (NEGATIVE); URINE LEUKOCYTE ESTERASE Negative (NEGATIVE); URINE NITRATE Negative (NEGATIVE); URINE PROTEIN(semi-quant) Negative (NEGATIVE)
--- NOTE | 2020-04-09 22:00 | NUR ---
Patient is a hard stick. Prabha NEWTON and Ana Lilia rigging supervisor tried to insert an IV but they can't find a vein. Assesment done to patient. Provided her with cereals and crackers. Walker on the bedside. Bed alarm on. Patient aware she cannot get up without an assistance.
[2020-04-09 22:26] VITALS: BP 169/84; PULSE 65; TEMP 97.8
[2020-04-09 22:29] LABS: BASO % 0.5 % (0.0-2.0); EOS # 0.1 (0.0-0.7); GRAN # 4.2 (1.4-6.5); GRAN % 69.3 % (42.2-75.2); HEMATOCRIT 40.2 % (37.0-47.0); HEMOGLOBIN 12.6 g/dl (12.5-16.0); LYMPH # 1.2 (1.2-3.4); LYMPH % 19.3 % (20.0-51.0); MEAN CELL VOLUME 97 fl (80.0-100.0); MEAN CORPUSCULAR HEMOGLOBIN 31 pg (27.0-31.0); MEAN CORPUSCULAR HGB CONC 31 g/dl (33.0-37.0); MEAN PLATELET VOLUME 10.9 fl (7.4-10.4); MONO # 0.6 (0.1-0.6); MONO % 9.7 % (1.7-9.3); PLATELET COUNT 246 K/mm3 (130-400); RED BLOOD COUNT 4.13 M/mm3 (4.10-5.30); REDCELL DISTRIBUTION WIDTH-CV 14.8 % (11.5-14.5)
[2020-04-09 22:34] LABS: INR 1.2 (0.8-3.0); PROTHROMBIN TIME 13.8 SECONDS (9.7-12.8)
[2020-04-09 23:09] LABS: MAGNESIUM 1.9 mg/dL (1.6-2.3); PHOSPHOROUS 3.5 mg/dL (2.5-4.5)
[2020-04-09 23:14] LABS: TROPONIN-I 0.013 ng/mL (0.000-0.035)
[2020-04-09 23:29] VITALS: BP 167/88; PULSE 69; TEMP 97.5
[2020-04-09 23:57] LABS: ALBUMIN 4.3 gm/dL (3.5-5.0); BILIRUBIN,TOTAL 0.7 mg/dL (0.0-1.0); CREATININE, serum 0.96 (0.52-1.25); POTASSIUM 4.1 mmol/L (3.4-5.0); TOTAL PROTEIN 7.2 gm/dL (6.4-8.2)
[2020-04-10] VITALS (10 sets, daily range): BP systolic 136–167; BP diastolic 66–97; PULSE 67–85; TEMP 97.4–98.4
--- NOTE | 2020-04-10 00:55 | NUR ---
Informed Abby JEFF via phone call that patient is a hard stick and still no IV access. Suggest if we can shift the Lasix and Hydralazine to oral for tonight while she doesn't have IV access and she agreed. Will try IV insertion in the morning.
--- NOTE | 2020-04-10 01:17 | NUR ---
Patient complains of lower back pain. Pain score of 6/10. Percocet PRN given.
--- NOTE | 2020-04-10 06:05 | NUR ---
Patient had been calling for assistance whenever she would go to the bathroom. On O2 at 2lpm via NC. She states she doesn't have pain anymore and was able to sleep well and just being awaken if she needs to urinate. Will endorse to day shift that patient is still for IV insertion. She's for echo in the morning.
--- NOTE | 2020-04-10 08:55 | NUR ---
Initial visit; Patient thanked Photoengraving Proofer for offering spiritual care, especially prayer and empathy. "Zuleyma" requested that Photoengraving Proofer continue to visit while she is a patient with us.
--- NOTE | 2020-04-10 09:43 | NUR ---
Survey Coordinator attended clinical rounds with the team. The patient discussed her falls to hospitalist. Prior to rounds, Philomena the IPR Director informed this SW that hospitalist consulted IPR for the patient. She reports if the patient qualifies, the earliest she will be able to accept is tomorrow, 04/11.
--- NOTE | 2020-04-10 10:31 | NUR ---
Livestock Haulier met with the patient to complete initial intake. The patient lives alone in [place]. The patient has two walkers and a CPAP. She receives supplies through a federal program. She is medically retired from [employer]. The patient's PCP is Dr. Feng and patient receives medications from [facility] [address] in . The patient has advanced directives in the EMR. The patient's grandson is a support lives in . The patient's mother turns 93 next month. The patient's daughter/DPOA-HC lives in [place]. COLLIN presented Medicare.gov's list of post acute rehab facililites. Her first choice is [facility] and second choice is [facility]. COLLIN fax referral. Will continue to monitor.
--- NOTE | 2020-04-10 15:16 | NUR ---
Armani from [facility] reports they are still reviewing the referral. Also if the patient is admitted she would be private pay. SW to inform patient. Will continue to monitor.
--- NOTE | 2020-04-10 15:46 | NUR ---
Philomena, [facility] Director has declined the patient for post acute rehab. Order Packer Or Packager met with the patient to discuss options moving forward. COLLIN informed the patient there has been acceptance from obs status for rehab at local facility. The patient states she has been to there and was not interested in sending anymore referrals. The patient currently receives [facility] and will return home with them. The patient discussed that she used to see a talk therapist at [place]. She has since used telehealth but did not like it. COLLIN contacted aDnica with [facility] and they will resume services for the patient at discharge. COLLIN informed [facility] of the patient's mental health needs. They report that the patient's Nurse Judy LEMUS is the psych nurse. They will inform her in order to begin those services. COLLIN contacted Mariajose the Order Packer Or Packager with Dr. Feng's office to provide latest update. COLLIN collaborated the above information with the patient's nurse and the PA.
--- NOTE | 2020-04-10 18:27 | NUR ---
Pt assessment completed and charted, medications administered per SEP. Pt A&O, 1 assist w/ walker. Pt on tele, NS. Denies chest pain, states she has some reflux. Some dizziness per pt when getting up. LS cta, denies SOB. Pulses strong bilaterally. Heart RRR, NS on tele. BS active. LUE restriction band on arm, 24g IV started to RWR. Pt had elevated BP during orthostatics, BP meds started, hydralazine PRN not given at the time. 1600 vitals, SBP WNL. Pt on room air during day, satting well. BLE 2-3+, LLE>RLE. No other skin issues noted. pt worked w/ PT/OT. No pain medication requested during shift. Pt tolerated meals ok. No other further needs expressed.
--- NOTE | 2020-04-10 20:00 | NUR ---
Received report from LAMAR Eugene. A/O x4. C/O pain to BLE and headache. PRN percocet and scheduled meds administered. BLE edema 2-3+, wrapped with coban as requested by pt and elevated on pillows. INT to RW intact, flushed, dressing CDI. Tele monitor in place. Wears 2LO2NC HS. Call light within reach.
--- NOTE | 2020-04-11 01:04 | NUR ---
PRN hydralazine administered for bp 163/88. Will monitor.
[2020-04-11 04:58] VITALS: BP 125/60; PULSE 69; TEMP 98.3
--- NOTE | 2020-04-11 06:00 | NUR ---
SBA to BR throughout the night. Meds administered. Needs met. Call light within reach.
--- NOTE | 2020-04-11 06:55 | NUR ---
Report given to LAMAR Eugene.
[2020-04-11 07:49] LABS: BASO % 0.3 % (0.0-2.0); EOS # 0.1 (0.0-0.7); EOS % 1.6 % (0-4.0); GRAN # 3.9 (1.4-6.5); GRAN % 67.7 % (42.2-75.2); HEMATOCRIT 38.6 % (37.0-47.0); HEMOGLOBIN 12.2 g/dl (12.5-16.0); LYMPH # 1.2 (1.2-3.4); MEAN CELL VOLUME 96 fl (80.0-100.0); MEAN CORPUSCULAR HEMOGLOBIN 30 pg (27.0-31.0); MEAN CORPUSCULAR HGB CONC 32 g/dl (33.0-37.0); MEAN PLATELET VOLUME 11.9 fl (7.4-10.4); MONO # 0.6 (0.1-0.6); MONO % 10.1 % (1.7-9.3); PLATELET COUNT 212 K/mm3 (130-400); RED BLOOD COUNT 4.03 M/mm3 (4.10-5.30); REDCELL DISTRIBUTION WIDTH-CV 14.6 % (11.5-14.5)
[2020-04-11 07:58] LABS: CALCIUM 9.4 mg/dL (8.4-10.2); CREATININE, serum 0.96 (0.52-1.25)
[2020-04-11 07:59] VITALS: BP 149/79; PULSE 71; TEMP 98.3
[2020-04-11] MEDS ORDERED: NORVASC 5MG5 MG/TAB PO (09:47)
--- NOTE | 2020-04-11 11:40 | NUR ---
Pt assessment completed and charted. Pt sitting in bed this morning when this nurse entered and was getting ready to take shower. Pt is A&O. Medications administered per MAR. Pt has RWR INT IV that flushes w/o difficulty. LS cta, BS active. Pt states her "eyes hurt" d/t having the wrong glasses and they were dry. Pt stated she had some abdominal pain, received percocet per sep. Pulses strong bilaterally. BLE 2+ edema. pt denies SOB, N/V/D, chest pain, numbness or tingling. Pt to discharge this afternoon. No further needs at this time. Call light within reach.
[2020-04-11] MEDS ORDERED: SYNTHROID 0.0.025 MG PO (12:30)
--- NOTE | 2020-04-11 12:49 | NUR ---
Pt sitting in recliner, this nurse informed patient that NUNU ledesma would be in to assist with getting ready for discharge. Pt had chair alarm on. This nurse reentered room when chair alarm was going off, pt heading to bathroom. Pt is fall risk. Educated pt on using call light for assistance and reminded pt she was here for frequent falls. pt stated she "hasn't fell here" and "only falls at home". This nurse reiterated using call light for assistance.
--- NOTE | 2020-04-11 13:09 | NUR ---
Follow-up; Patient thanked Aquaculture Worker for stopping again and offering her a prayer and God's blessings.
--- NOTE | 2020-04-11 14:16 | NUR ---
The patient discharged home today, 04/11 and continue with [facility]. There did not need to be new orders since the patient was obs status. COLLIN contacted Sabi with [facility] to inform them of the discharge. COLLIN contacted Tae with Dr. Feng's office, left message. There are no additional needs.
--- NOTE | 2020-04-11 14:47 | NUR ---
Pt discharge instructions discussed and reviewed w/ patient who verbalized understanding all questions answered. RWR INT IV dc'd w/ catheter tip intact. No further needs. Pt escorted out via EMANUEL w/ blake nurse and Arely EDDY to ER entrance.
== END 2020-04-11 14:15 | disposition home or self-care (01) ==
LOC: MEDICAL 13:09
PROVIDERS: Nurse Practitioner Family; Physician Assistant; ADMIT Hospitalist
DX: R55 Syncope and collapse (principal); R29.6 Repeated falls; I11.0 Hypertensive heart disease with heart failure; I50.20 Unspecified systolic (congestive) heart failure; I48.91 Unspecified atrial fibrillation; M06.9 Rheumatoid arthritis, unspecified; G47.33 Obstructive sleep apnea (adult) (pediatric); F32.9 Major depressive disorder, single episode, unspecified; F41.9 Anxiety disorder, unspecified; G89.29 Other chronic pain; M79.7 Fibromyalgia; K21.9 Gastro-esophageal reflux disease without esophagitis; E03.9 Hypothyroidism, unspecified; E66.01 Morbid (severe) obesity due to excess calories; F17.210 Nicotine dependence, cigarettes, uncomplicated; K31.84 Gastroparesis; Z86.73 Personal history of transient ischemic attack (TIA), and cerebral infarction without residual deficits; Z86.718 Personal history of other venous thrombosis and embolism; Z88.5 Allergy status to narcotic agent; Z91.012 Allergy to eggs; Z88.1 Allergy status to other antibiotic agents; Z91.018 Allergy to other foods; Z88.2 Allergy status to sulfonamides; Z79.82 Long term (current) use of aspirin; Z88.8 Allergy status to other drugs, medicaments and biological substances
CPT/HCPCS: G0378; J0360; J7500

== ENCOUNTER 2020-04-23 08:04 | Outpatient (CLI) | payer MEDICARE, BC ==
[~2020-04-23] VITALS: Ht 162.7 cm; Wt 103.8 kg
[~2020-04-23 08:04] MED LIST changes: +BETAPACE AF80 MG/TA1 PO; +FERROUS SU325 MG/TAB PO; +PROVENTIL0.09 MG/A1 IH
[2020-04-23 08:49] VITALS: BP 144/110; PULSE 77; TEMP 98.1
[2020-04-23 08:53] LABS: HEMATOCRIT 38.6 % (37.0-47.0); HEMOGLOBIN 12.6 g/dl (12.5-16.0); MEAN CELL VOLUME 96 fl (80.0-100.0); MEAN CORPUSCULAR HEMOGLOBIN 31 pg (27.0-31.0); MEAN CORPUSCULAR HGB CONC 33 g/dl (33.0-37.0); MEAN PLATELET VOLUME 10.6 fl (7.4-10.4); PLATELET COUNT 278 K/mm3 (130-400); RED BLOOD COUNT 4.03 M/mm3 (4.10-5.30); REDCELL DISTRIBUTION WIDTH-CV 14.4 % (11.5-14.5)
[2020-04-23] MEDS ORDERED: NORVASC 5MG5 MG/TAB PO (08:54)
[2020-04-23] MEDS ORDERED: ORENCIA CL125 MG/1 M SQ (08:57)
[2020-04-23 09:02] LABS: INR 1.2 (0.8-3.0); PROTHROMBIN TIME 12.9 SECONDS (9.7-12.8)
[2020-04-23] MEDS ORDERED: SYNTHROID0.05 MG/TA PO (09:09)
[2020-04-23 09:13] LABS: CALCIUM 9.9 mg/dL (8.4-10.2); CREATININE, serum 0.92 (0.52-1.25); POTASSIUM 3.7 mmol/L (3.4-5.0)
[2020-04-23 10:07] VITALS: BP 154/77; PULSE 73; TEMP 98.1
[2020-04-23 10:22] VITALS: BP 150/76; PULSE 73; TEMP 98.1
--- NOTE | 2020-04-23 10:22 | NUR ---
Report from Shwetha NEWTON. VSS. Pt resting at this time
[2020-04-23 10:37] VITALS: BP 141/87; PULSE 80; TEMP 98.1
[2020-04-23 10:52] VITALS: BP 142/80; PULSE 82; TEMP 98.1
--- NOTE | 2020-04-23 10:52 | NUR ---
Ambulated with wheeled walker to bathroom. Steady gait and no pain reported.
[2020-04-23 11:22] VITALS: BP 147/79; PULSE 76; TEMP 98.1
--- NOTE | 2020-04-23 11:22 | NUR ---
INT discontinued intact. Discharge instructions given.
--- NOTE | 2020-04-23 11:55 | NUR ---
Transferred to private car by balaji
== END 2020-04-23 11:56 | disposition home or self-care (01) ==
LOC: COL.RAD 08:04
PROVIDERS: Internal Medicine Adult Congenital Heart Disease
DX: I51.7 Cardiomegaly (principal); Z95.9 Presence of cardiac and vascular implant and graft, unspecified
CPT/HCPCS: J2704; J3010

== ENCOUNTER 2020-10-23 08:32 | Emergency (ER) | payer MEDICARE, BC ==
[~2020-10-23] VITALS: Ht 162.6 cm; Wt 106.4 kg
[~2020-10-23 08:32] MED LIST changes: -TEMOVATE0.052 TOP; +TEMOVATE50TS TOP
[2020-10-23 08:45] VITALS: TEMP 97.5
[2020-10-23 09:47] LABS: BASO % 0.6 % (0.0-2.0); EOS # 0.1 (0.0-0.7); EOS % 2.9 % (0-4.0); GRAN # 2.8 (1.4-6.5); GRAN % 57.7 % (42.2-75.2); LYMPH # 1.2 (1.2-3.4); LYMPH % 25.7 % (20.0-51.0); MEAN CELL VOLUME 95 fl (80.0-100.0); MEAN CORPUSCULAR HEMOGLOBIN 29 pg (27.0-31.0); MEAN CORPUSCULAR HGB CONC 31 g/dl (33.0-37.0); MEAN PLATELET VOLUME 9.7 fl (7.4-10.4); MONO # 0.6 (0.1-0.6); MONO % 12.9 % (1.7-9.3); PLATELET COUNT 381 K/mm3 (130-400); RED BLOOD COUNT 3.75 M/mm3 (4.10-5.30); REDCELL DISTRIBUTION WIDTH-CV 14.6 % (11.5-14.5)
[2020-10-23 09:49] LABS: HEMATOCRIT 35.7 % (37.0-47.0)
[2020-10-23 10:03] LABS: ALBUMIN 3.9 gm/dL (3.5-5.0); BILIRUBIN,TOTAL 0.3 mg/dL (0.0-1.0); C-REACTIVE PROTEIN 0.6 mg/dL (0.0-0.9); CALCIUM 9.7 mg/dL (8.4-10.2); CREATININE, serum 0.81 (0.52-1.25); POTASSIUM 3.9 mmol/L (3.4-5.0); TOTAL PROTEIN 7.6 gm/dL (6.4-8.2)
[2020-10-23 11:03] VITALS: BP 153/104; PULSE 77
--- NOTE | 2020-10-23 14:50 | NUR ---
Master Control Operator consulted for the patient due to frequent falls at home. The patient was sent over from her PCPs (Dr. Feng) office due to frequent falls at home to get a work up. The patient was amulating on her own to the restroom in the ED. COLLIN staffed with the patient's nurse and she reports the patient declined post acute rehab. COLLIN met with the patient to discuss post acute rehab and the concerns Dr. Feng had for her safety at home. The patient declined post acute rehab. The patient reports that her mother is 93 years old and she spends the weekends with her. Her mother lives about a block away. The patient reports a friend takes her to appointments locally and to [place]. SW discussed her safety at home and the importance of pursing post acute rehab, she declined. The patient currently has [facility] home Health services. The patient reports she was hospitalized at [facility] on on 10/08 for a few days and was discharged home with IV antibiotics. The patient reports that her last round of IV antibiotics was completed. The patient was interested in having [facility] PT and OT visit more often. The patient plans to return home once cleared from the ED. APS report made. Intake # [id number]. COLLIN contacted Sabi with [facility] and she confirmed that the patient's round of antibiotics is complete. The patient does have PT/OT ordered with [facility]. COLLIN collaborated the above information with the patient's nurse and CORBIN Salas with Dr. Feng's office.
== END 2020-10-23 11:07 | disposition home or self-care (01) ==
LOC: COL.ER 08:32
PROVIDERS: Emergency Medicine
DX: M54.9 Dorsalgia, unspecified (principal); M54.16 Radiculopathy, lumbar region; I10 Essential (primary) hypertension; I48.91 Unspecified atrial fibrillation; M79.7 Fibromyalgia; F32.9 Major depressive disorder, single episode, unspecified; F41.9 Anxiety disorder, unspecified; K21.9 Gastro-esophageal reflux disease without esophagitis; E03.9 Hypothyroidism, unspecified; F17.210 Nicotine dependence, cigarettes, uncomplicated; Z86.718 Personal history of other venous thrombosis and embolism; Z86.73 Personal history of transient ischemic attack (TIA), and cerebral infarction without residual deficits; Z90.710 Acquired absence of both cervix and uterus; Z88.8 Allergy status to other drugs, medicaments and biological substances; Z88.2 Allergy status to sulfonamides; Z88.1 Allergy status to other antibiotic agents; Z88.6 Allergy status to analgesic agent; Z79.82 Long term (current) use of aspirin; Z79.01 Long term (current) use of anticoagulants; Z79.890 Hormone replacement therapy

== ENCOUNTER 2020-10-28 16:27 | Inpatient (IN) | payer MEDICARE, BC ==
[~2020-10-28] VITALS: Ht 162.6 cm; Wt 105.4 kg
[2020-10-28 17:01] LABS: BASO % 0.5 % (0.0-2.0); EOS # 0.1 (0.0-0.7); EOS % 2.3 % (0-4.0); GRAN # 2.2 (1.4-6.5); GRAN % 56.8 % (42.2-75.2); HEMATOCRIT 36.5 % (37.0-47.0); HEMOGLOBIN 11.4 g/dl (12.5-16.0); LYMPH % 25.9 % (20.0-51.0); MEAN CELL VOLUME 96 fl (80.0-100.0); MEAN CORPUSCULAR HEMOGLOBIN 30 pg (27.0-31.0); MEAN CORPUSCULAR HGB CONC 31 g/dl (33.0-37.0); MONO # 0.6 (0.1-0.6); MONO % 14.2 % (1.7-9.3); PLATELET COUNT 321 K/mm3 (130-400); RED BLOOD COUNT 3.79 M/mm3 (4.10-5.30); REDCELL DISTRIBUTION WIDTH-CV 14.7 % (11.5-14.5)
[2020-10-28 17:25] LABS: COLLECTION METHOD CLEAN CATCH
[2020-10-28 17:28] LABS: ALANINE AMINOTRANSFERASE 15 U/L (4-34); ALBUMIN 4.1 gm/dL (3.5-5.0); ALKALINE PHOSPHATASE 100 U/L (50-136); ANION GAP 9 mmol/L (7-16); AST,SGOT 28 U/L (15-37); BILIRUBIN,TOTAL 0.2 mg/dL (0.0-1.0); BLOOD UREA NITROGEN 21 mg/dL (7-17); CALCIUM 9.9 mg/dL (8.4-10.2); CARBON DIOXIDE 27 mmol/L (22-30); CHLORIDE 101 mmol/L (98-107); CREATININE, serum 1.07 (0.52-1.25); GLUCOSE 100 mg/dL (74-106); POTASSIUM 4.1 mmol/L (3.4-5.0); SODIUM 137 mmol/L (137-145); TOTAL PROTEIN 7.8 gm/dL (6.4-8.2)
[2020-10-28 17:31] LABS: MUCOUS Present /lpf; PH 5 (5-8); URINE APPEARANCE Clear; URINE BACTERIA None Seen /hpf; URINE BILIRUBIN Negative (NEGATIVE); URINE BLOOD Negative (NEGATIVE); URINE COLOR Yellow; URINE GLUCOSE Negative (NEGATIVE); URINE KETONE Trace (NEGATIVE); URINE LEUKOCYTE ESTERASE Negative (NEGATIVE); URINE NITRATE Negative (NEGATIVE); URINE PROTEIN(semi-quant) Negative (NEGATIVE); URINE RBC 0-2 /hpf; URINE UROBILINOGEN Negative (NEGATIVE)
[2020-10-28 17:43] LABS: TROPONIN-I < 0.012 ng/mL (0.000-0.035)
[2020-10-28 20:59] VITALS: BP 147/80; PULSE 77; TEMP 98
--- NOTE | 2020-10-28 21:33 | NUR ---
Awake, alert, oriented x 4, able to make all needs known, has spoken with her family, VS stable, ambualates w/o issue, R upper arm PICC with dressing c/d/i, updated on plan of care, diet - AHA with 1500 fluid restriction, food/drink given to patient- tolerated well, assessment completed at this time.
[2020-10-28 23:44] VITALS: BP 137/76; PULSE 78; TEMP 97.5
[2020-10-29 03:29] VITALS: BP 150/65; PULSE 70; TEMP 97.3
[2020-10-29 06:47] LABS: BASO % 0.7 % (0.0-2.0); EOS # 0.1 (0.0-0.7); EOS % 2.4 % (0-4.0); GRAN # 2.2 (1.4-6.5); GRAN % 53.2 % (42.2-75.2); HEMOGLOBIN 10.4 g/dl (12.5-16.0); LYMPH # 1.2 (1.2-3.4); LYMPH % 28.2 % (20.0-51.0); MEAN CELL VOLUME 97 fl (80.0-100.0); MEAN CORPUSCULAR HEMOGLOBIN 30 pg (27.0-31.0); MEAN CORPUSCULAR HGB CONC 31 g/dl (33.0-37.0); MEAN PLATELET VOLUME 10.4 fl (7.4-10.4); MONO # 0.6 (0.1-0.6); MONO % 15.3 % (1.7-9.3); PLATELET COUNT 292 K/mm3 (130-400); RED BLOOD COUNT 3.46 M/mm3 (4.10-5.30); REDCELL DISTRIBUTION WIDTH-CV 14.9 % (11.5-14.5)
[2020-10-29 06:48] LABS: HEMATOCRIT 33.6 % (37.0-47.0)
--- NOTE | 2020-10-29 06:50 | NUR ---
up to bathroom independently, notified EXCHANGE ARCHITECT to please stay in room while she is in bathroom and assist back to bed,
[2020-10-29 07:08] LABS: CALCIUM 9.3 mg/dL (8.4-10.2); CREATININE, serum 0.97 (0.52-1.25); POTASSIUM 3.8 mmol/L (3.4-5.0)
[2020-10-29 07:38] VITALS: BP 137/71; PULSE 73; TEMP 98.3
--- NOTE | 2020-10-29 08:00 | NUR ---
Pt resting in bed. Assessment as charted. Drowsy, does not finish complete sentence. Telemetry on, HR reg. PICC line to R upper arm intact, no redness noted, covered w/ FELIZ wrap. Placed Pt in yellow gown/socks. Bed alarm in place, call light and personal items within reach.
--- NOTE | 2020-10-29 08:45 | NUR ---
sitting up in bed, student FILTER FILLER assisting with care
--- NOTE | 2020-10-29 09:00 | NUR ---
resting in chair waiting on breakfast, dozes off while providing care, PICC to right upper arm with good blood return, c/o some sharp stabbing pains over left breast area, then dozes off, full assessment completed
[2020-10-29 10:51] VITALS: BP 128/72; PULSE 71; TEMP 98.1
--- NOTE | 2020-10-29 11:13 | NUR ---
Initial visit; Patient had difficulty staying awake. Gas Welding Equipment Mechanic placed a pillow behind her and helped her get comfortable as she kept leaning forward and drifting off to sleep while trying to talk. When she felt comfortable she smiled and thanked Gas Welding Equipment Mechanic quite plainly for coming in. Gas Welding Equipment Mechanic will keep Shelbi in her prayers.
--- NOTE | 2020-10-29 11:43 | NUR ---
remains up in chair and appears to be sleeping
--- NOTE | 2020-10-29 12:00 | NUR ---
Admitted with a midline catheter in right upper arm. no date on dressing and no chlorhexidine impregnated disk. patient reports midline was placed on Wednesday at [facility] for home adminstration of IV antibiotics. Midline intact with sterile dressing change done with insertion site cleansed with choraprep x 1, chlorhexidine impregnated disk applied, skin prep, stat lock, and tegaderm applied. no signs or symptoms of IV complications noted. no concerns voiced. wrapped with an wes to protect catheter.
--- NOTE | 2020-10-29 14:06 | NUR ---
ambulated in zuniga with physical therapy, then returned to bed
[2020-10-29] MEDS ORDERED: PLAVIX 75MG TAB75 MG PO (14:16)
[2020-10-29] MEDS ORDERED: BANOPHEN MAXIMU1 CRE TOP (14:17)
[2020-10-29] MEDS ORDERED: ERGOCALCIFER50000 IU PO (14:18)
[2020-10-29] MEDS ORDERED: FLUOCINONIDE TP (14:20)
[2020-10-29] MEDS ORDERED: FOLIC ACID 11 MG/TA1 PO (14:20)
[2020-10-29] MEDS ORDERED: KEPPRA 500MG500 MG PO (14:22)
[2020-10-29] MEDS ORDERED: MINOXIDIL 2.5 PO (14:24)
[2020-10-29 15:39] VITALS: BP 122/61; PULSE 82; TEMP 98.4
--- NOTE | 2020-10-29 16:08 | NUR ---
Bill Sorter contacted Armani with [facility] regarding the patient. Armani reports the patient is currently at [facility] receiving post acute rehab.
--- NOTE | 2020-10-29 16:24 | NUR ---
Forming Yardage Control Operator met with patient to discuss discharge plan. Patient lives in [place] but is currently at [facility] for a skilled stay. Patient sees Dr. Feng for primary care and uses [facility] in for prescriptions. Patient uses a walker for ambulation and reports she is normally pretty independent with ADLS. Patient has Advance Directives in EMR which designate her daughter, Sean (ph#[phone]) and mother, Shelbi. Patient plans to return to SNF upon discharge. SW contacted Sean and left a message to review discharge plan. SW also faxed clinical updates to [facility]. Discharge plan: Patient to return to [facility] SNF.
--- NOTE | 2020-10-29 18:48 | NUR ---
bedside shift report given to LAMAR Milton
[2020-10-29 19:54] VITALS: BP 127/68; PULSE 76; TEMP 97.6
--- NOTE | 2020-10-29 22:50 | NUR ---
2020- PT SETTING UP IN RECLINER. ASSESSMENT COMPLETE. PT ALERT AND OX3. DOES C/O GENERALIZED PAIN BUT HAS EPISODES OF FALLING ASLEEP DURING CONVERSATION. REPORTED PT HAS PAIN PUMP INMPLANTED. RT UPPER ARM, MIDLINE FLUSHED WELL. STANDBY ASST TO BR, PT LEANS FORWARD AND DOWN TOWARD GROUND WHEN WALKING. TOOK TO VENDING MACHINE PER RECRUITING OPERATIONS CONSULTANT IN W/C. NEEDS MET.
[2020-10-29 23:42] VITALS: BP 137/81; PULSE 76; TEMP 97.7
[2020-10-30 03:52] VITALS: BP 120/77; PULSE 73; TEMP 98.2
--- NOTE | 2020-10-30 05:42 | NUR ---
RESTED THROUGH THE NIGHT WITHOUT INCIDENT. NEEDS MET.
--- NOTE | 2020-10-30 07:00 | NUR ---
Report from LAMAR Milton. Pt sitting up on side of bed, awake and alert, talking upon our entrance into the room but no other person in room at this time. Pt denies needs. Call light in reach.
[2020-10-30 07:36] VITALS: BP 114/73; PULSE 70; TEMP 98.3
--- NOTE | 2020-10-30 08:30 | NUR ---
Assessment complete. Pt sitting up in bed, intermittently dozing with eyes closed and body drooping to the side, comes alert with verbal stimuli, oriented x 4. Pt reports pain to back of neck 7 out of [address]. Midline catheter to right upper arm patent without s/s of complications. No further needs reported. Call light in reach. Bed alarm on.
--- NOTE | 2020-10-30 08:37 | NUR ---
Salvage Engineering Technician faxed updates to Armani at [facility].
--- NOTE | 2020-10-30 09:18 | NUR ---
Senior Interactive Developer attended clinical rounds with the team. The patient is now inpatient status due to the patient's mental status.
--- NOTE | 2020-10-30 09:22 | NUR ---
Sabi with [facility] contacted this Mucker Operator regarding the patient on 10/29. The patient has been receiving services from [facility]. COLLIN faxed udpates to [facility] this day.
[2020-10-30 09:48] LABS: ARTERIAL BLD GAS O2 SATURATION 95.5 % (92-100); ARTERIAL BLD GAS TCO2 CT 29.4; ARTERIAL BLOOD GAS PCO2 44.5 mmHg (35-45); ARTERIAL BLOOD GAS PO2 77.6 mmHg (80-100); ARTERIAL BLOOD GAS pH 7.42 (7.35-7.45)
[2020-10-30 10:09] LABS: BASO % 0.7 % (0.0-2.0); EOS # 0.1 (0.0-0.7); GRAN # 2.7 (1.4-6.5); GRAN % 60.1 % (42.2-75.2); HEMATOCRIT 34.4 % (37.0-47.0); LYMPH # 1.1 (1.2-3.4); LYMPH % 24.9 % (20.0-51.0); MEAN CELL VOLUME 94 fl (80.0-100.0); MEAN CORPUSCULAR HEMOGLOBIN 30 pg (27.0-31.0); MEAN CORPUSCULAR HGB CONC 32 g/dl (33.0-37.0); MEAN PLATELET VOLUME 10.3 fl (7.4-10.4); MONO # 0.6 (0.1-0.6); MONO % 12.1 % (1.7-9.3); PLATELET COUNT 266 K/mm3 (130-400); RED BLOOD COUNT 3.65 M/mm3 (4.10-5.30); REDCELL DISTRIBUTION WIDTH-CV 14.8 % (11.5-14.5)
[2020-10-30 10:17] LABS: BILIRUBIN,TOTAL 0.5 mg/dL (0.0-1.0); CALCIUM 9.8 mg/dL (8.4-10.2); CREATININE, serum 0.89 (0.52-1.25); POTASSIUM 4.1 mmol/L (3.4-5.0); TOTAL PROTEIN 7.5 gm/dL (6.4-8.2)
[2020-10-30 12:19] VITALS: BP 112/87; PULSE 68; TEMP 97.5
[2020-10-30 15:03] VITALS: BP 126/68; PULSE 75; TEMP 97.7
--- NOTE | 2020-10-30 18:30 | NUR ---
Pt has been up and down continuously throughout the day with intermittent confusion and hallucinations, having conversations with herself or others she is seeing in the room. Once pt is fully alert and awake, conversation is more appropriate, but pt continues to be drowsy, falling asleep during or right after conversation.
[2020-10-30 19:31] VITALS: BP 137/87; PULSE 80; TEMP 97.7
--- NOTE | 2020-10-30 21:11 | NUR ---
PATIENT USES NASAL PILLOWS AT HOME. SHE DOES NOT TOLERATE A MASK. SHE PREFERS TO WEAR OXYGEN INSTEAD OF CPAP FOR HER SLEEP APNEA WHILE IN THE HOSPITAL.
--- NOTE | 2020-10-30 22:08 | NUR ---
1950- ASSESSMENT COMPLETE. PT ALERT TO SELF AND SITUATION. INTERMITTENT CONFUSING NOTED. WILL TALK TO SELF AND ANSWER SELF. FALLS ASLEEP OFTEN DURING CONVERSATION AND HARD TO TRACK. POC DISCUSSED. 2100- PT TOOK TO [employer] IN W/C FOR SNACK PER HER REQUEST. NEEDS MET.
[2020-10-30 23:10] VITALS: BP 121/64; PULSE 85; TEMP 98.2
[2020-10-31 03:04] VITALS: BP 122/64; PULSE 73; TEMP 98.4
--- NOTE | 2020-10-31 05:33 | NUR ---
UP MOST OF THE NIGHT. NODS OFF OFTEN AND SETTING OFF BED ALARM OFTEN. CONTINUE TO RANDOMLY BE TALKING TO SELF SAYING THINGS THAT DO NOT MAKE SENSE. WILL ASK FOR PAIN PILL AND THEN GO BACK TO SLEEP TWICE OVER NIGHT. AM MEDS GIVEN THIS AM -NO NARCS. NEEDS MET.
[2020-10-31 06:43] LABS: BASO % 0.5 % (0.0-2.0); EOS # 0.1 (0.0-0.7); EOS % 3.3 % (0-4.0); GRAN # 1.7 (1.4-6.5); GRAN % 47.7 % (42.2-75.2); LYMPH # 1.2 (1.2-3.4); LYMPH % 32.1 % (20.0-51.0); MEAN CELL VOLUME 96 fl (80.0-100.0); MEAN CORPUSCULAR HEMOGLOBIN 29 pg (27.0-31.0); MEAN CORPUSCULAR HGB CONC 31 g/dl (33.0-37.0); MEAN PLATELET VOLUME 10.5 fl (7.4-10.4); MONO # 0.6 (0.1-0.6); MONO % 15.9 % (1.7-9.3); PLATELET COUNT 308 K/mm3 (130-400); RED BLOOD COUNT 3.74 M/mm3 (4.10-5.30); REDCELL DISTRIBUTION WIDTH-CV 14.9 % (11.5-14.5)
[2020-10-31 06:53] LABS: CALCIUM 9.9 mg/dL (8.4-10.2); CREATININE, serum 0.93 (0.52-1.25); POTASSIUM 3.8 mmol/L (3.4-5.0)
[2020-10-31 07:28] VITALS: BP 130/79; PULSE 69; TEMP 97.7
--- NOTE | 2020-10-31 08:00 | NUR ---
PATIENT IS ORIENTED X2 BUT DISPLAYS SOME CONFUSION/FORGETFULNESS. NEURO CHECKS WNL. HIGH FALL RISK, BED ALARM ON. PATIENT RE-ORIENTED ABOUT SAFETY RISKS AND TIME OF DAY. BREAKFAST TRAY AT BEDSIDE. STUDENT NURSE WORKING WITH PATIENT AND GIVING AM MEDS, SEE CHARTING.
--- NOTE | 2020-10-31 09:40 | NUR ---
Paitent is Alert and oriented to place and self, but not to time. Patient is talking to herself throughout assessment, but responds to questions appropriately.
[2020-10-31 12:03] VITALS: BP 148/60; PULSE 68; TEMP 98.3
--- NOTE | 2020-10-31 14:35 | NUR ---
ANU staffed with this Toe Stapler regarding patient discharge. The patient is medically cleared for discharge. COLLIN faxed updates and contacted Armani with [facility]. They will be able to take the patient for post acute rehab today, 10/31. 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 The team and patient were in agreeance. COLLIN contacted the patient's daughter, Sean and she was in agreeance as well. Discharge orders faxed. There are no additional needs at this time.
--- NOTE | 2020-10-31 14:42 | NUR ---
Primary nurse was assisted with [id number] patient care by [employer] student Gabino Nguyen and [employer] instructor Prabha Bermeo MSN RN
--- NOTE | 2020-10-31 15:15 | NUR ---
AIVS AT BEDSIDE TO DC MIDLINE.
--- NOTE | 2020-10-31 16:55 | NUR ---
PATIENT DISCHARGING VIA WITH [facility]. INFO PACKET GIVEN TO CLERK CARRIER. ATTEMPTED TO CALL REPORT TO NURSE WHO COULD NOT TAKE REPORT AT THIS TIME. AIVS ALREADY REMOVED MIDLINE. PATIENT DRESSED AND PERSONAL BELONGINGS PACKED. PATIENT DISCHARGED.
== END 2020-10-31 16:55 | DRG 948 ==
LOC: COL.ER 16:27 → MEDICAL 18:57 → EDBEDREQ 19:55 → MEDICAL 23:00
PROVIDERS: Nurse Practitioner; Student in an Organized Health Care Education/Training Program; ADMIT Hospitalist
DX: R41.82 Altered mental status, unspecified (principal); Z68.41 Body mass index [BMI] 40.0-44.9, adult; I50.22 Chronic systolic (congestive) heart failure; I11.0 Hypertensive heart disease with heart failure; I48.91 Unspecified atrial fibrillation; G47.33 Obstructive sleep apnea (adult) (pediatric); M06.9 Rheumatoid arthritis, unspecified; M32.9 Systemic lupus erythematosus, unspecified; Z20.822 Contact with and (suspected) exposure to COVID-19; M79.7 Fibromyalgia; E03.9 Hypothyroidism, unspecified; K21.9 Gastro-esophageal reflux disease without esophagitis; K58.9 Irritable bowel syndrome, unspecified; F32.9 Major depressive disorder, single episode, unspecified; F41.9 Anxiety disorder, unspecified; E66.01 Morbid (severe) obesity due to excess calories; G43.909 Migraine, unspecified, not intractable, without status migrainosus; K31.84 Gastroparesis; D64.9 Anemia, unspecified; W18.30XA Fall on same level, unspecified, initial encounter; Y93.9 Activity, unspecified; Y92.099 Unspecified place in other non-institutional residence as the place of occurrence of the external cause; R53.81 Other malaise; F17.210 Nicotine dependence, cigarettes, uncomplicated; Z79.891 Long term (current) use of opiate analgesic; Z79.82 Long term (current) use of aspirin; Z79.01 Long term (current) use of anticoagulants; Z96.653 Presence of artificial knee joint, bilateral; Z96.641 Presence of right artificial hip joint; Z86.73 Personal history of transient ischemic attack (TIA), and cerebral infarction without residual deficits; Z86.718 Personal history of other venous thrombosis and embolism; Z85.3 Personal history of malignant neoplasm of breast; Z90.710 Acquired absence of both cervix and uterus; Z91.81 History of falling; Z88.8 Allergy status to other drugs, medicaments and biological substances; Z88.2 Allergy status to sulfonamides; Z88.1 Allergy status to other antibiotic agents; Z88.5 Allergy status to narcotic agent
CPT/HCPCS: 99223-AI; 99233-AI; 99239; G0378; J1650; J7500

== ENCOUNTER → 2020-11-13 | Outpatient (CLI) | payer MEDICARE, BC ==
[~2020-11-13] MED LIST changes: +BANOPHEN MAXIMU1 CRE TOP; +BUMEX 1MG TA1 MG/TA1 PO; +ERGOCALCIFER50000 IU PO; +FLEXERIL 1010 MG/TAB PO; +FLUOCINONIDE TP; +KEPPRA 500MG500 MG PO; +MINOXIDIL 2.5 PO
[2020-11-13 17:03] LABS: BASO % 0.6 % (0.0-2.0); EOS # 0.1 (0.0-0.7); EOS % 1.9 % (0-4.0); GRAN # 2.9 (1.4-6.5); GRAN % 60.7 % (42.2-75.2); HEMATOCRIT 41.4 % (37.0-47.0); HEMOGLOBIN 12.8 g/dl (12.5-16.0); LYMPH # 1.2 (1.2-3.4); LYMPH % 24.7 % (20.0-51.0); MEAN CELL VOLUME 97 fl (80.0-100.0); MEAN CORPUSCULAR HEMOGLOBIN 30 pg (27.0-31.0); MEAN CORPUSCULAR HGB CONC 31 g/dl (33.0-37.0); MEAN PLATELET VOLUME 10.6 fl (7.4-10.4); MONO # 0.6 (0.1-0.6); MONO % 11.7 % (1.7-9.3); PLATELET COUNT 373 K/mm3 (130-400); RED BLOOD COUNT 4.28 M/mm3 (4.10-5.30); REDCELL DISTRIBUTION WIDTH-CV 15.4 % (11.5-14.5)
== END ==
LOC: ZLAB.STJ 16:48
PROVIDERS: Internal Medicine
DX: T81.49XA Infection following a procedure, other surgical site, initial encounter (principal)

== ENCOUNTER → 2020-11-21 | Outpatient (CLI) | payer MEDICARE, BC ==
[2020-11-21 18:03] LABS: TRICYCLIC ANTIDEPRESS URINE POSITIVE
== END ==
LOC: ZLAB.STJ 15:10
PROVIDERS: Internal Medicine
DX: N18.30 Chronic kidney disease, stage 3 unspecified (principal)

== ENCOUNTER 2020-12-04 08:12 | Outpatient (CLI) | payer MEDICARE, BC ==
[2020-12-04] VITALS (8 sets, daily range): BP systolic 133–155; BP diastolic 74–94; PULSE 68–84; TEMP 98.5
[~2020-12-04] VITALS: Ht 162.7 cm; Wt 108.2 kg
[~2020-12-04 08:12] MED LIST changes: -BUMEX 1MG TA1 MG/TA1 PO; -FLEXERIL 1010 MG/TAB PO
[2020-12-04 09:35] LABS: HEMATOCRIT 37.7 % (37.0-47.0); HEMOGLOBIN 11.9 g/dl (12.5-16.0); MEAN CELL VOLUME 94 fl (80.0-100.0); MEAN CORPUSCULAR HEMOGLOBIN 30 pg (27.0-31.0); MEAN CORPUSCULAR HGB CONC 32 g/dl (33.0-37.0); MEAN PLATELET VOLUME 10.4 fl (7.4-10.4); PLATELET COUNT 285 K/mm3 (130-400); RED BLOOD COUNT 4.03 M/mm3 (4.10-5.30); REDCELL DISTRIBUTION WIDTH-CV 15.2 % (11.5-14.5)
[2020-12-04 09:42] LABS: PROTHROMBIN TIME 11.4 SECONDS (9.7-12.8)
[2020-12-04 10:01] LABS: CALCIUM 9.6 mg/dL (8.4-10.2); CREATININE, serum 0.82 (0.52-1.25); POTASSIUM 3.9 mmol/L (3.4-5.0)
--- NOTE | 2020-12-04 11:15 | NUR ---
PT CARE ASSUMED AT THIS TIME. REPORT FROM WOODROW NEWTON. PT IS AWAKE AND ALERT AFTER WILEY, NO COMPLAINTS. VSS. SR ON MONITOR. I REVIEWED DISCHARGE PLAN WITH PT AND HER DAUGHTER. NO CONCERNS AT THIS TIME. CALL LIGHT IN REACH.
--- NOTE | 2020-12-04 13:10 | NUR ---
PT READY FOR DEPARTURE. IV DC'D WITH CATH INTACT. DC INSTRUCTIONS REVIEWED, NO QUESTIONS. TO EXIT VIA WHEELCHAIR.
== END 2020-12-04 13:20 | disposition home or self-care (01) ==
LOC: COL.RAD 08:12
PROVIDERS: Internal Medicine Cardiovascular Disease
DX: Z95.818 Presence of other cardiac implants and grafts (principal)
CPT/HCPCS: J2704

== ENCOUNTER 2021-01-14 12:43 | Emergency (ER) | payer MEDICARE, BC ==
[~2021-01-14] VITALS: Ht 162.6 cm; Wt 108.2 kg
[2021-01-14 12:54] VITALS: TEMP 98.1
[2021-01-14 14:02] LABS: BASO % 0.4 % (0.0-2.0); EOS # 0.1 (0.0-0.7); EOS % 1.1 % (0-4.0); GRAN # 3.7 (1.4-6.5); GRAN % 65.7 % (42.2-75.2); HEMATOCRIT 41.4 % (37.0-47.0); HEMOGLOBIN 13.1 g/dl (12.5-16.0); LYMPH # 1.1 (1.2-3.4); LYMPH % 20.1 % (20.0-51.0); MEAN CELL VOLUME 96 fl (80.0-100.0); MEAN CORPUSCULAR HEMOGLOBIN 30 pg (27.0-31.0); MEAN CORPUSCULAR HGB CONC 32 g/dl (33.0-37.0); MEAN PLATELET VOLUME 10.4 fl (7.4-10.4); MONO # 0.7 (0.1-0.6); MONO % 12.3 % (1.7-9.3); PLATELET COUNT 294 K/mm3 (130-400); RED BLOOD COUNT 4.33 M/mm3 (4.10-5.30); REDCELL DISTRIBUTION WIDTH-CV 15.6 % (11.5-14.5)
[2021-01-14 14:13] LABS: BILIRUBIN,TOTAL 0.7 mg/dL (0.0-1.0); CALCIUM 10.1 mg/dL (8.4-10.2); CREATININE, serum 0.85 (0.52-1.25); POTASSIUM 3.8 mmol/L (3.4-5.0); TOTAL PROTEIN 7.6 gm/dL (6.4-8.2)
[2021-01-14 14:26] LABS: COLLECTION METHOD CATHETER
[2021-01-14 14:46] LABS: PH 6 (5-8); URINE APPEARANCE Clear; URINE BACTERIA None Seen /hpf; URINE BILIRUBIN Negative (NEGATIVE); URINE BLOOD Negative (NEGATIVE); URINE GLUCOSE Negative (NEGATIVE); URINE KETONE Negative (NEGATIVE); URINE LEUKOCYTE ESTERASE Trace (NEGATIVE); URINE NITRATE Negative (NEGATIVE); URINE PROTEIN(semi-quant) Negative (NEGATIVE); URINE RBC 0-2 /hpf; URINE UROBILINOGEN Negative (NEGATIVE)
[2021-01-14 14:48] LABS: URINE COLOR Yellow
[2021-01-14] MEDS ORDERED: AMITIZA24 MCG PO (15:06)
[2021-01-14] MEDS ORDERED: BUMEX 1MG TA1 MG/TA1 PO (15:40)
[2021-01-14 15:45] VITALS: BP 142/84; PULSE 76
== END 2021-01-14 15:50 | disposition home or self-care (01) ==
LOC: COL.ER 12:43
PROVIDERS: Personal Emergency Response Attendant
DX: E87.70 Fluid overload, unspecified (principal); I50.9 Heart failure, unspecified; I11.0 Hypertensive heart disease with heart failure; I48.91 Unspecified atrial fibrillation; Z96.653 Presence of artificial knee joint, bilateral; Z86.73 Personal history of transient ischemic attack (TIA), and cerebral infarction without residual deficits; Z79.82 Long term (current) use of aspirin; Z79.899 Other long term (current) drug therapy

== ENCOUNTER 2021-01-20 07:57 | Outpatient (CLI) | payer MEDICARE, BC ==
[~2021-01-20] VITALS: Ht 162.6 cm; Wt 95.8 kg
[~2021-01-20 07:57] MED LIST changes: +BUMEX 1MG TA1 MG/TA1 PO
[2021-01-20 08:21] VITALS: BP 138/78; PULSE 69; TEMP 97.9
== END 2021-01-20 09:56 | disposition home or self-care (01) ==
LOC: EUO 07:57
DX: M81.0 Age-related osteoporosis without current pathological fracture (principal)
CPT/HCPCS: J3489

== ENCOUNTER 2021-03-02 20:47 | Emergency (ER) | payer MEDICARE, BC ==
[~2021-03-02] VITALS: Ht 162.6 cm; Wt 90.9 kg
[2021-03-02 22:25] LABS: BASO % 0.5 % (0.0-2.0); EOS # 0.1 (0.0-0.7); EOS % 1.1 % (0-4.0); GRAN # 4.1 (1.4-6.5); GRAN % 66.1 % (42.2-75.2); HEMATOCRIT 46.5 % (37.0-47.0); HEMOGLOBIN 14.5 g/dl (12.5-16.0); LYMPH # 1.4 (1.2-3.4); LYMPH % 22.2 % (20.0-51.0); MEAN CELL VOLUME 98 fl (80.0-100.0); MEAN CORPUSCULAR HEMOGLOBIN 31 pg (27.0-31.0); MEAN CORPUSCULAR HGB CONC 31 g/dl (33.0-37.0); MEAN PLATELET VOLUME 10.8 fl (7.4-10.4); MONO # 0.6 (0.1-0.6); MONO % 9.8 % (1.7-9.3); PLATELET COUNT 332 K/mm3 (130-400); RED BLOOD COUNT 4.73 M/mm3 (4.10-5.30); REDCELL DISTRIBUTION WIDTH-CV 15.1 % (11.5-14.5)
[2021-03-02 22:36] LABS: ALANINE AMINOTRANSFERASE 21 U/L (4-34); ALBUMIN 4.8 gm/dL (3.5-5.0); ALKALINE PHOSPHATASE 121 U/L (50-136); ANION GAP 2 mmol/L (7-16); AST,SGOT 33 U/L (15-37); BILIRUBIN,TOTAL 0.7 mg/dL (0.0-1.0); BLOOD UREA NITROGEN 14 mg/dL (7-17); CALCIUM 9.6 mg/dL (8.4-10.2); CARBON DIOXIDE 31 mmol/L (22-30); CHLORIDE 106 mmol/L (98-107); CREATININE, serum 0.74 (0.52-1.25); GLUCOSE 92 mg/dL (74-106); LIPASE 68 U/L (23-300); POTASSIUM 3.9 mmol/L (3.4-5.0); SODIUM 139 mmol/L (137-145); TOTAL PROTEIN 8.6 gm/dL (6.4-8.2)
[2021-03-02 22:43] LABS: C-REACTIVE PROTEIN < 0.5 mg/dL (0.0-0.9)
[2021-03-02 23:21] LABS: COLLECTION METHOD CATHETER
[2021-03-02 23:26] LABS: MUCOUS Present /lpf; PH 7 (5-8); SQUAMOUS EPITHELIAL 0-2 /hpf; URINE APPEARANCE Clear; URINE BACTERIA None Seen /hpf; URINE BILIRUBIN Negative (NEGATIVE); URINE BLOOD Negative (NEGATIVE); URINE COLOR Yellow; URINE GLUCOSE Negative (NEGATIVE); URINE KETONE Negative (NEGATIVE); URINE LEUKOCYTE ESTERASE Negative (NEGATIVE); URINE NITRATE Negative (NEGATIVE); URINE PROTEIN(semi-quant) Negative (NEGATIVE)
[2021-03-03] MEDS ORDERED: FLEXERIL 1010 MG/TAB PO (03:14)
[2021-03-03 03:45] VITALS: BP 142/78; PULSE 89; TEMP 98.1
== END 2021-03-03 03:45 | disposition home or self-care (01) ==
LOC: COL.ER 20:47
PROVIDERS: Nurse Practitioner
DX: M25.552 Pain in left hip (principal); M25.551 Pain in right hip; R10.9 Unspecified abdominal pain; Z96.641 Presence of right artificial hip joint
CPT/HCPCS: J1170; Q9967

== ENCOUNTER → 2021-04-23 | Outpatient (CLI) | payer MEDICARE, BC ==
[~2021-04-23] MED LIST changes: +FLEXERIL 1010 MG/TAB PO
== END ==
LOC: COL.VAS 13:59
DX: I87.2 Venous insufficiency (chronic) (peripheral) (principal)

== ENCOUNTER 2021-07-08 13:16 | Emergency (ER) | payer MEDICARE, BC ==
[~2021-07-08] VITALS: Ht 162.6 cm; Wt 109.1 kg
[2021-07-08 13:47] VITALS: TEMP 98
[2021-07-08] MEDS ORDERED: LIDODERM 5% PATC1 EA TP (15:54)
[2021-07-08] MEDS ORDERED: CLEOCIN HCL300 MG PO (15:54)
[2021-07-08 16:12] VITALS: BP 142/82; PULSE 70
== END 2021-07-08 16:15 | disposition home or self-care (01) ==
LOC: COL.ER 13:16
DX: S16.1XXA Strain of muscle, fascia and tendon at neck level, initial encounter (principal); I11.0 Hypertensive heart disease with heart failure; I50.9 Heart failure, unspecified; I48.91 Unspecified atrial fibrillation; G43.909 Migraine, unspecified, not intractable, without status migrainosus; F17.210 Nicotine dependence, cigarettes, uncomplicated; Z79.82 Long term (current) use of aspirin; Z79.899 Other long term (current) drug therapy; W19.XXXA Unspecified fall, initial encounter

== ENCOUNTER → 2021-08-04 | Outpatient (CLI) | payer MEDICARE, BC ==
[~2021-08-04] MED LIST changes: +CLEOCIN HCL300 MG PO; +LIDODERM 5% PATC1 EA TP
== END ==
LOC: MC.RAD 10:00
DX: R92.8 Other abnormal and inconclusive findings on diagnostic imaging of breast (principal); Z85.3 Personal history of malignant neoplasm of breast

== ENCOUNTER → 2021-08-06 | Outpatient (CLI) | payer MEDICARE, BC | LOC: MC.RAD 06:59 | DX: R92.8 Other abnormal and inconclusive findings on diagnostic imaging of breast (principal) ==

== ENCOUNTER 2021-09-23 09:33 | Day surgery (SDC) | payer MEDICARE, BC ==
[~2021-09-23] VITALS: Ht 162.6 cm; Wt 109.3 kg
[2021-09-23] MEDS ORDERED: ORENCIA CL125 MG/1 M SQ (10:44)
[2021-09-23] MEDS ORDERED: IMURAN 50MG TAB50 MG PO (10:45)
[2021-09-23] MEDS ORDERED: LIPITOR 10MG10 MG PO (10:45)
[2021-09-23] MEDS ORDERED: DRIZALMA SPRINK30 MG PO (10:46)
[2021-09-23] MEDS ORDERED: VITAMIN D250 MCG PO (10:46)
[2021-09-23] MEDS ORDERED: LUNESTA3 MG PO (10:47)
[2021-09-23] MEDS ORDERED: DILAUDID 4MG TAB4 MG PO (10:47)
[2021-09-23] MEDS ORDERED: DAZIDOX10 MG PO (10:48)
[2021-09-23] MEDS ORDERED: CVS SPECTRAVIT1 EA15 PO (10:48)
[2021-09-23] MEDS ORDERED: ANTI-DIARRHEAL2 MG PO (10:48)
[2021-09-23] MEDS ORDERED: NARCAN4 MG NS (10:49)
[2021-09-23] MEDS ORDERED: PHENERGAN 25 TA25 MG PO (10:50)
[2021-09-23] MEDS ORDERED: KLOR-CON SPRIN10 MEQ PO (10:50)
[2021-09-23] MEDS ORDERED: NURTEC ODT75 MG PO (10:50)
[2021-09-23] MEDS ORDERED: ZANAFLEX CAPSULE2 MG PO (10:51)
[2021-09-23 10:53] VITALS: BP 151/87; PULSE 64; TEMP 96.7
[2021-09-23 11:45] VITALS: BP 168/89; PULSE 68
--- NOTE | 2021-09-23 11:45 | NUR ---
Patient returns to bay 5 per cart and transfers with two person assist to recliner. Temp 97.9 and room air sats 92%. IV fluids infusing. Call light in reach. Allowed to rest. Family member in room.
--- NOTE | 2021-09-23 11:48 | NUR ---
Dr. Alexis in the room and all questions answered.
[2021-09-23 12:00] VITALS: BP 151/87; PULSE 65
--- NOTE | 2021-09-23 12:00 | NUR ---
Eating toast and drinking juice. Offers no complaints of pain or nausea.
[2021-09-23 12:15] VITALS: BP 163/84; PULSE 63
--- NOTE | 2021-09-23 12:15 | NUR ---
IV discontinued and site is free of redness or swelling. Patient dresses self. Friend in room.
--- NOTE | 2021-09-23 12:21 | NUR ---
Discharge instructions given and voices understanding of these.
== END 2021-09-23 12:32 | disposition home or self-care (01) ==
LOC: SDCO 09:33
DX: Z12.11 Encounter for screening for malignant neoplasm of colon (principal); K57.30 Diverticulosis of large intestine without perforation or abscess without bleeding; K64.0 First degree hemorrhoids; Z86.010 Personal history of colon polyps
CPT/HCPCS: J2704

== ENCOUNTER 2022-02-06 10:08 | Outpatient (CLI) | payer MEDICARE, BC ==
[~2022-02-06] VITALS: Ht 162.6 cm; Wt 104.4 kg
[~2022-02-06 10:08] MED LIST changes: +ANTI-DIARRHEAL2 MG PO; +CVS SPECTRAVIT1 EA15 PO; +DAZIDOX10 MG PO; +DRIZALMA SPRINK30 MG PO; +KLOR-CON SPRIN10 MEQ PO; +LIPITOR 10MG10 MG PO; +LUNESTA3 MG PO; +NARCAN4 MG NS; +NURTEC ODT75 MG PO; +VITAMIN D250 MCG PO; +ZANAFLEX CAPSULE2 MG PO
[2022-02-06 10:28] VITALS: BP 143/77; PULSE 72; TEMP 98.3
[2022-02-06] MEDS ORDERED: FLAGYL 250250 MG/TAB PO (10:36)
--- NOTE | 2022-02-06 11:14 | NUR ---
After removing pt's IV and finalizing review of hx, she is offered a wheelchair ride out to car. She states "I think you need to take me to the ER." When questioned further, pt states she is having a burning pain to rt hip and feels overall "uncomfortable all over." No concerns were voiced during reclast infusion or immediatley following it. She states she would like to be evaluated due to pain in the ER. Charge nurse Cami Bowers notified of pt's complaints and request. She states pt can regester in ED and will be triaged. Pt taken by wheelchair with belongings to ED registraton desk.
== END 2022-02-06 11:25 | disposition home or self-care (01) ==
LOC: EUO 10:08
DX: M81.0 Age-related osteoporosis without current pathological fracture (principal)
CPT/HCPCS: J3489

== ENCOUNTER 2022-02-06 11:18 | Emergency (ER) | payer MEDICARE, BC ==
[~2022-02-06] VITALS: Ht 162.6 cm; Wt 105.5 kg
[~2022-02-06 11:18] MED LIST changes: +FLAGYL 250250 MG/TAB PO
[2022-02-06 11:29] VITALS: TEMP 97.9
[2022-02-06 13:21] LABS: ALBUMIN 4.1 gm/dL (3.4-4.8); BILIRUBIN,TOTAL 0.8 mg/dL (0.2-1.2); C-REACTIVE PROTEIN 0.1 mg/dL (0.00-0.50); CALCIUM 10.6 mg/dL (8.4-10.2); CREATININE, serum 0.8 mg/dL (0.57-1.11); POTASSIUM 4.3 mmol/L (3.5-4.5)
[2022-02-06 14:15] LABS: COLLECTION METHOD CLEAN CATCH
[2022-02-06 14:18] LABS: BASO % 0.5 % (0.0-2.0); EOS # 0.1 K/mm3 (0.0-0.7); EOS % 1.4 % (0.0-4.0); GRAN # 3.7 K/mm3 (1.4-6.5); GRAN % 66.7 % (42.2-75.2); HEMATOCRIT 42.7 % (37.0-47.0); HEMOGLOBIN 13.5 g/dl (12.5-16.0); LYMPH # 1.1 K/mm3 (1.2-3.4); LYMPH % 19.9 % (20.0-51.0); MEAN CELL VOLUME 96 fl (80.0-100.0); MEAN CORPUSCULAR HEMOGLOBIN 30 pg (27-31); MEAN CORPUSCULAR HGB CONC 32 g/dl (33.0-37.0); MEAN PLATELET VOLUME 10.6 fl (7.4-10.4); MONO # 0.6 K/mm3 (0.1-0.6); MONO % 11.1 % (1.7-9.3); PLATELET COUNT 284 K/mm3 (130-400); RED BLOOD COUNT 4.44 M/mm3 (4.10-5.30); REDCELL DISTRIBUTION WIDTH-CV 14.6 % (11.5-14.5)
[2022-02-06 14:30] LABS: PH 6 (5-8); SQUAMOUS EPITHELIAL 0-2 /hpf (0-10); URINE APPEARANCE Clear (CLEAR/HAZY); URINE BACTERIA None Seen /hpf (NONE SEEN); URINE BILIRUBIN Negative (NEGATIVE); URINE BLOOD Negative (NEGATIVE); URINE COLOR Yellow (YELLOW); URINE GLUCOSE Negative (NEGATIVE); URINE KETONE Negative (NEGATIVE); URINE LEUKOCYTE ESTERASE Negative (NEGATIVE); URINE NITRATE Negative (NEGATIVE); URINE PROTEIN(semi-quant) Negative (NEGATIVE); URINE UROBILINOGEN Negative (NEGATIVE)
[2022-02-06 17:25] VITALS: BP 173/92; PULSE 76
== END 2022-02-06 17:33 | disposition home or self-care (01) ==
LOC: COL.ER 11:18
PROVIDERS: Emergency Medicine; Physician Assistant
DX: R10.30 Lower abdominal pain, unspecified (principal); R11.2 Nausea with vomiting, unspecified; G89.29 Other chronic pain; M54.9 Dorsalgia, unspecified; E66.01 Morbid (severe) obesity due to excess calories; Z97.8 Presence of other specified devices; Z68.39 Body mass index [BMI] 39.0-39.9, adult; Z79.891 Long term (current) use of opiate analgesic
CPT/HCPCS: J2550; J7030; Q9967

== ENCOUNTER → 2022-03-09 | Outpatient (CLI) | payer MEDICARE, BC | LOC: MC.RAD 11:00 | DX: R92.8 Other abnormal and inconclusive findings on diagnostic imaging of breast (principal); Z85.3 Personal history of malignant neoplasm of breast ==

== ENCOUNTER 2022-03-19 09:49 | Emergency (ER) | payer MEDICARE, BC ==
[~2022-03-19] VITALS: Ht 162.6 cm; Wt 103.6 kg
[2022-03-19 10:14] VITALS: TEMP 98.3
[2022-03-19 10:14] LABS: COLLECTION METHOD CLEAN CATCH
[2022-03-19 10:30] LABS: URINE APPEARANCE Clear (CLEAR/HAZY); URINE COLOR Yellow (YELLOW)
[2022-03-19 10:31] LABS: PH 5.5 (5.0-8.5); SQUAMOUS EPITHELIAL 0-2 /hpf (0-10); URINE BACTERIA None Seen /hpf (NONE SEEN); URINE BLOOD TRACE-LYSED (NEGATIVE); URINE GLUCOSE Negative (NEGATIVE); URINE KETONE Negative (NEGATIVE); URINE NITRATE Negative (NEGATIVE); URINE PROTEIN(semi-quant) Negative (NEGATIVE); URINE UROBILINOGEN 0.2 E.U/dL (0.2-1.0)
[2022-03-19 11:21] LABS: BASO % 0.6 % (0.0-2.0); EOS # 0.1 K/mm3 (0.0-0.7); EOS % 2.4 % (0.0-4.0); GRAN # 3.2 K/mm3 (1.4-6.5); GRAN % 59.8 % (42.2-75.2); HEMATOCRIT 45.6 % (37.0-47.0); HEMOGLOBIN 14.6 g/dl (12.5-16.0); LYMPH # 1.2 K/mm3 (1.2-3.4); LYMPH % 22.3 % (20.0-51.0); MEAN CELL VOLUME 96 fl (80.0-100.0); MEAN CORPUSCULAR HEMOGLOBIN 31 pg (27-31); MEAN CORPUSCULAR HGB CONC 32 g/dl (33.0-37.0); MEAN PLATELET VOLUME 10.8 fl (7.4-10.4); MONO # 0.8 K/mm3 (0.1-0.6); MONO % 14.5 % (1.7-9.3); PLATELET COUNT 286 K/mm3 (130-400); RED BLOOD COUNT 4.74 M/mm3 (4.10-5.30); REDCELL DISTRIBUTION WIDTH-CV 14.1 % (11.5-14.5)
[2022-03-19 11:44] LABS: ALBUMIN 3.8 gm/dL (3.4-4.8); BILIRUBIN,TOTAL 0.9 mg/dL (0.2-1.2); C-REACTIVE PROTEIN 0.07 mg/dL (0.00-0.50); CALCIUM 9.9 mg/dL (8.4-10.2); CREATININE, serum 0.8 mg/dL (0.57-1.11); POTASSIUM 3.8 mmol/L (3.5-4.5); TOTAL PROTEIN 7.3 gm/dL (6.2-8.1)
[2022-03-19 14:45] VITALS: BP 146/88; PULSE 77
== END 2022-03-19 14:45 | disposition home or self-care (01) ==
LOC: COL.ER 09:49
PROVIDERS: Physician Assistant
DX: M54.16 Radiculopathy, lumbar region (principal); K59.00 Constipation, unspecified; K29.70 Gastritis, unspecified, without bleeding
CPT/HCPCS: J1885; J2360; J7030; Q9967

== ENCOUNTER 2024-05-10 08:07 | Day surgery (SDC) | payer MEDICARE, MEDICAID ==
[~2024-05-10] VITALS: Ht 162.7 cm; Wt 92.5 kg
[2024-05-10 08:25] VITALS: BP 150/80; PULSE 78; TEMP 97.7
[2024-05-10] MEDS ORDERED: DICLOFENAC SOD2.5 ML TOP (09:04)
[2024-05-10] MEDS ORDERED: ROBAXIN 50500 MG/TAB PO (09:05)
[2024-05-10] MEDS ORDERED: OCUVITE EYE HE1 EACH PO (09:06)
--- NOTE | 2024-05-10 10:06 | NUR ---
Shelbi tolerated loop implant well, we reviewed site care instructions with her and she verbalized understanding. Site looks good, dressing clean and dry. bs report and handoff of care to Tamiko NEWTON.
--- NOTE | 2024-05-10 10:57 | NUR ---
PT TOLERATED RECOVERY WELL. VS REMAINED WITHIN NORMAL LIMITS. CHEST DRESSING REMAINED CLEAN DRY AND INTACT. PT REMAINED FREE FROM ACUTE CONCERNS AND COMPLAINT. PT ASSISTED TO MAIN LOBBY VIA WHEELCHAIR. PT VERBALIZED UNDERSTANDING OF DISCHARGE INSTRUCTIONS.
== END 2024-05-10 10:59 | disposition home or self-care (01) ==
LOC: COL.CAR 08:07
DX: I48.0 Paroxysmal atrial fibrillation (principal); R55 Syncope and collapse; I13.0 Hypertensive heart and chronic kidney disease with heart failure and stage 1 through stage 4 chronic kidney disease, or unspecified chronic kidney disease; I50.32 Chronic diastolic (congestive) heart failure; I34.0 Nonrheumatic mitral (valve) insufficiency; E78.2 Mixed hyperlipidemia; F17.210 Nicotine dependence, cigarettes, uncomplicated; Z85.3 Personal history of malignant neoplasm of breast; Z86.718 Personal history of other venous thrombosis and embolism; Z79.82 Long term (current) use of aspirin; Z79.899 Other long term (current) drug therapy; Z95.818 Presence of other cardiac implants and grafts
CPT/HCPCS: C1764